=== PATIENT | male | born 1955 | race Caucasian/White ===

== ENCOUNTER 2016-12-19 19:29 | Inpatient (IN) | payer OTHER, BC ==
[2016-12-19] MEDS ORDERED: Aspirin Low Dose CHEW TAB* 81 MG PO ONE (19:44)
[2016-12-19] MEDS ORDERED: Morphine INJ* 4 MG/ML 1 ML CARPUJECT IV ONE (19:47)
[2016-12-19] MEDS ORDERED: NS 0.9% 1000 ML*IV.FLUID IV ONE (19:47)
[2016-12-19] MEDS ORDERED: Morphine INJ* 4 MG/ML 1 ML CARPUJECT ONE (19:53)
[2016-12-19] MEDS ORDERED: Ticagrelor* 90 MG TAB PO ONE (20:00)
[2016-12-19] MEDS ORDERED: Heparin for STEMI(*) 5,000 UNITS/ML 1 ML VIAL IV ONE (20:00)
[2016-12-19 20:01] LABS: Hematocrit 54 % (42-52); Hemoglobin 18.5 g/dl (14.0-18.0); Mean Corpuscular HGB Conc 35 g/dl (31-36); Mean Corpuscular Hemoglobin 32 pg (27-31); Mean Corpuscular Volume 91 fL (80-94); Mean Platelet Volume 7 um3 (7.4-10.4); Red Blood Count 5.88 10^6/ul (4.0-5.4); Red Cell Distribution Width 14 % (10.5-15); White Blood Count 13.9 10^3/ul (3.5-10.8)
[2016-12-19 20:09] LABS: Comments Flag Yes
[2016-12-19 20:18] LABS: Albumin 4.6 g/dL (3.2-5.2); Calcium 10.5 mg/dL (8.6-10.3); EGFR African American 82.9 (>60); EGFR Non-African American 64.4 (>60); Potassium 3.9 mmol/L (3.5-5.0); Total Bilirubin 0.7 mg/dL (0.2-1.0); Total Protein 7.6 g/dL (6.4-8.9)
[2016-12-19 20:28] LABS: Troponin I 0.04 ng/mL (<0.04)
--- NOTE | 2016-12-19 20:32 | RAD ---
Indication: Chest pain; STEMI. Comparison: January 15, 2016 CT. Technique: Upright AP chest radiographs 1950 and 2005 hours. Second image taken due to incomplete inclusion of the lung bases on the initial view. Report: Elevated lung volumes. Clear lungs and pleural spaces. Negative for pneumothorax. The heart, pulmonary vasculature, and mediastinal contours are unremarkable. No thoracic fractures evident. Bilateral AC joint osteoarthritis. IMPRESSION: 1. Elevated lung volumes suggest potential obstructive lung disease. 2. No evidence for acute intrathoracic disease.
[2016-12-19] MEDS ORDERED: Iohexol 350 (CONTRAST) 200 ML MDV IV ONE (20:55)
[2016-12-19] MEDS ORDERED: oxyCODONE/Acetamin 5/325 MG* TAB PO PRN (21:32)
[2016-12-19] MEDS ORDERED: Nitroglycerin TAB 0.4 MG* 0.4 MG TAB SL PRN (21:32)
[2016-12-19] MEDS ORDERED: Acetaminophen TAB* 325 MG PO PRN (21:32)
[2016-12-19] MEDS ORDERED: Ondansetron INJ* 2 MG/ML VIAL IV PRN (21:32)
[2016-12-19] MEDS ORDERED: Docusate CAP* 100 MG PO PRN (21:32)
[2016-12-19] MEDS ORDERED: fentaNYL* 50 MCG/ML 2 ML VIAL (100 MCG VIAL) IV PRN (21:32)
[2016-12-19] MEDS ORDERED: Zolpidem TAB* 5 MG PO PRN (21:32)
[2016-12-19] MEDS ORDERED: NITROGLYCERIN DRIP ONE (21:41)
[2016-12-19] MEDS ORDERED: Midazolam* 1 MG/ML 5 ML VIAL (5 MG) ONE (21:41)
[2016-12-19] MEDS ORDERED: Heparin 2 UNITS/ML IVPREMIX* 1,000 ML BAG IV ONE (21:41)
[2016-12-19] MEDS ORDERED: Lidocaine 1% INJ* 10 MG/ML 30 ML SDV ONE (21:41)
[2016-12-19] MEDS ORDERED: NS 0.9% 1000 ML* 1,000 ML IV SCH (21:45)
[2016-12-19] MEDS ORDERED: Atorvastatin* 80 MG TAB PO ONE (21:47)
[2016-12-19] MEDS ORDERED: Metoprolol Tartrate TAB* 25 MG PO SCH ×2 (22:00→22:10)
[2016-12-20 02:10] LABS: Troponin I 46.2 ng/mL (<0.04)
[2016-12-20] MEDS: Ticagrelor* 90 MG TAB PO SCH ×2 (05:56→19:24)
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
[2016-12-20 06:14] LABS: Hematocrit 44 % (42-52); Hemoglobin 15.3 g/dl (14.0-18.0); Mean Corpuscular HGB Conc 35 g/dl (31-36); Mean Corpuscular Hemoglobin 32 pg (27-31); Mean Corpuscular Volume 90 fL (80-94); Mean Platelet Volume 7 um3 (7.4-10.4); Red Blood Count 4.86 10^6/ul (4.0-5.4); Red Cell Distribution Width 13 % (10.5-15); White Blood Count 11.3 10^3/ul (3.5-10.8)
[2016-12-20 06:33] LABS: Albumin 3.5 g/dL (3.2-5.2); BUN/Creatinine Ratio 16.7 (8-20); EGFR African American 129.7 (>60); EGFR Non-African American 100.9 (>60); HDL Cholesterol 33.8 mg/dL; Potassium 3.5 mmol/L (3.5-5.0); Total Bilirubin 0.5 mg/dL (0.2-1.0); Total Protein 5.5 g/dL (6.4-8.9)
[2016-12-20 07:42] LABS: Troponin I 52.68 ng/mL (<0.04)
[2016-12-20] MEDS ORDERED: Perflutren Lipid Microsphere* 3 ML VIAL ONE (07:59)
[2016-12-20] MEDS: Metoprolol Succinate XL TAB* 50 MG PO SCH ×2 (08:31→20:54)
[2016-12-20] MEDS: Tamsulosin CAP* 0.4 MG PO SCH (08:32)
[2016-12-20] MEDS: Lisinopril TAB* 5 MG PO SCH ×2 (08:32→19:21)
[2016-12-20] MEDS: Gabapentin CAP(*) 300 MG PO SCH ×3 (08:32→20:28)
[2016-12-20] MEDS: Aspirin Low Dose CHEW TAB* 81 MG PO SCH (08:32)
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
[2016-12-20] MEDS: Nicotine PATCH 14 MG/24 HR* PATCH TRANSDERM SCH (11:13)
[2016-12-20 12:25] LABS: Troponin I 40.83 ng/mL (<0.04)
[2016-12-20] MEDS: Atorvastatin* 80 MG TAB PO SCH (20:54)
--- NOTE | 2016-12-20 21:44 | CATH ---
CC: Wilber Mathias MD CARDIAC CATHETERIZATION AND INTERVENTIONAL REPORT: DATE OF PROCEDURE: 12/19/16 INDICATION FOR THE PROCEDURE: The patient presents with chest and left arm discomfort with a syncopal episode and ongoing symptoms and ST segment depression in the early precordial leads with minimal elevation in lead 3. Assess for acute posterior inferior wall myocardial infarction. PROCEDURE: Coronary arteriography, primary stenting of the proximal right coronary artery utilizing a 3.0 x 24 mm long Synergy drug-eluting stent postdilated to 3.3 to 3.4 mm, left heart catheterization, left ventriculography. PROCEDURE IN DETAIL: The patient was interviewed and examined in the emergency room where the risks and benefits were explained. He understood them and wished to proceed. He was brought emergently to the cardiovascular laboratory with ongoing symptoms and ST segment changes. He was prepped and draped in the sterile fashion. The right groin area was anesthetized with 1% lidocaine and right femoral artery was cannulated and a 6-Djiboutian introducer was placed. Coronary arteriography was performed utilizing a 5-Djiboutian 4 Fredi right coronary catheter and a 5-Djiboutian 4 Fredi left coronary catheter. Following this, a decision was made to intervene into the proximal right coronary artery total occlusion. ACT was checked and found to be subtherapeutic and as such, an Angiomax bolus was given and Angiomax drip was started. Guiding views were obtained using a 6-Djiboutian ART4 curve guide catheter. A 0.014 All Star wire was advanced down the right coronary artery and primary stenting was performed utilizing a 3.0 x 24-mm long Synergy drug-eluting stent postdilated with both a 3.0 and 3.25 x 12-mm long NC Emerge balloon at high pressures. Following this, further injections were made into the left coronary artery. Following this, a 5 -Djiboutian Pigtail catheter was advanced to the ascending aorta where central aortic pressure was recorded. Catheter was then passed across the aortic valve into the left ventricle where left ventricular pressure was recorded. Left ventriculography was performed utilizing a total of 26 cc of Omnipaque dye at a rate of 13 cc per second. The catheter was then pulled back across the aortic valve to recheck gradient. At the end of the case, an injection was made into the right femoral sheath to assess the eligibility to utilize a closure device. It was found to be acceptable for this and as such, a 6/7-Djiboutian Mynx closure device was utilized with good hemostasis. The total contrast used was 175 cc of Omnipaque dye. The radiation exposure included 10 minutes of fluoro time. The air kerma radiation was 709 milligray. The DAP radiation was 5039 microgray per meter square. RESULTS: HEMODYNAMIC DATA: Left heart catheterization revealed central aortic pressure of 114/53 with a mean of 83. Left ventricular pressure 115 over left ventricular end- diastolic pressure of 16. LEFT VENTRICULOGRAPHY: Performed in the FELIZ projection revealed moderate to severe focal proximal inferior wall hypokinesis with preservation of the apex and distal inferior wall and anterior wall. Overall ejection fraction assessed at 45%. CORONARY ARTERIOGRAPHY: A. Left coronary artery. 1. Left main widely patent. 2. Left anterior descending artery: The left anterior descending artery had a mild to moderate 35% to 40% mid lesion noted. There were mild luminal irregularities in the distal portion of the vessel but no significant obstruction were seen. The LAD supplied a mid diagonal branch with no significant disease followed by small caliber distal diagonal branches. 3. Circumflex artery - a nondominant vessel supplying a high trifurcation marginal branch, which had very mild ostial narrowing of 20% to 25% . The continuation of the circumflex supplied a moderate size mid obtuse marginal branch, which had a 55% to 60% mid lesion. Just prior to that was a subtotally occluded continuation of the circumflex (90% +), thin in nature, supplying thin low lying posterior left ventricular branches. These vessels appeared to be diffusely diseased and small in caliber. B. Right coronary artery - a dominant vessel (once opened and able to identify the distal vessel) with 100% total occlusion proximally. INTERVENTION INTO PROXIMAL RIGHT CORONARY ARTERY: Successful reconstitution of totally occluded proximal right coronary artery with primary stenting utilizing a 3.0 x 24 mm long Synergy drug-eluting stent postdilated to 3.3 mm. On reopening of the vessel, there appeared to be moderate disease as the artery turned on to the inferior surface of the heart with the area of narrowing approximately 45% to 50%. Of note, a mid acute marginal branch appeared to have a possible thrombus within its proximal area, but with a very small caliber vessel, barely 1.2 to 1.5 mm. OVERALL ASSESSMENT: Significant coronary artery disease involving totally occluded proximal right coronary artery and diffusely diseased distal circumflex small in caliber supplying several thin posterior left ventricular branches. There was moderate disease within the mid obtuse marginal branch as described above. At this point in time, dual antiplatelet therapy will be pursued for a minimum of 1 year. Re-evaluation of the distal circumflex will be carried out most likely as an outpatient unless ischemia develops during the hospitalization. Aspirin therapy, high-dose statin therapy, beta-mari therapy and most likely JUDITH inhibitor therapy will all be instituted. [id number]/[facility] #: [id number] [facility]
[2016-12-20] MEDS ORDERED: Atorvastatin* 80 MG TAB PO ONE (21:45)
[2016-12-20] MEDS: Nicotine Patch Removal NOTE PATCH OFF SCH (22:57)
[2016-12-21] MEDS: Ticagrelor* 90 MG TAB PO SCH ×2 (05:51→17:39)
[2016-12-21 05:52] LABS: Hematocrit 42 % (42-52); Hemoglobin 14.8 g/dl (14.0-18.0); Mean Corpuscular HGB Conc 35 g/dl (31-36); Mean Corpuscular Hemoglobin 32 pg (27-31); Mean Corpuscular Volume 91 fL (80-94); Mean Platelet Volume 8 um3 (7.4-10.4); Red Blood Count 4.67 10^6/ul (4.0-5.4); Red Cell Distribution Width 13 % (10.5-15); White Blood Count 10.2 10^3/ul (3.5-10.8)
[2016-12-21 06:05] LABS: BUN/Creatinine Ratio 14.9 (8-20); Calcium 8.9 mg/dL (8.6-10.3); EGFR African American 154.6 (>60); EGFR Non-African American 120.2 (>60); Potassium 3.7 mmol/L (3.5-5.0)
[2016-12-21] MEDS: Tamsulosin CAP* 0.4 MG PO SCH (08:33)
[2016-12-21] MEDS: Lisinopril TAB* 5 MG PO SCH (08:33)
[2016-12-21] MEDS: Gabapentin CAP(*) 300 MG PO SCH ×3 (08:34→20:19)
[2016-12-21] MEDS: Metoprolol Succinate XL TAB* 50 MG PO SCH ×2 (08:34→20:19)
[2016-12-21] MEDS: Aspirin Low Dose CHEW TAB* 81 MG PO SCH (08:34)
[2016-12-21] MEDS: Nicotine PATCH 14 MG/24 HR* PATCH TRANSDERM SCH ×2 (08:35→08:39)
[2016-12-21] MEDS: amLODIPine TAB* 5 MG PO SCH (09:45)
[2016-12-21] MEDS: Nicotine Patch Removal NOTE PATCH OFF SCH (20:20)
[2016-12-21] MEDS: Atorvastatin* 80 MG TAB PO SCH (20:20)
[2016-12-21] MEDS ORDERED: Magnesium Sulfate 1 GM IV* 1 GM/100 ML BAG IV PRN (21:38)
[2016-12-21] MEDS ORDERED: Potassium Chlor TAB* 20 MEQ TAB.ER PO ONE (22:00)
[2016-12-22] MEDS: Ticagrelor* 90 MG TAB PO SCH (06:01)
[2016-12-22 06:15] LABS: Hematocrit 46 % (42-52); Hemoglobin 15.8 g/dl (14.0-18.0); Mean Corpuscular HGB Conc 35 g/dl (31-36); Mean Corpuscular Hemoglobin 31 pg (27-31); Mean Corpuscular Volume 91 fL (80-94); Mean Platelet Volume 8 um3 (7.4-10.4); Red Blood Count 5.05 10^6/ul (4.0-5.4); Red Cell Distribution Width 13 % (10.5-15)
[2016-12-22 06:23] LABS: Calcium 9.2 mg/dL (8.6-10.3); EGFR African American 127.8 (>60); EGFR Non-African American 99.4 (>60); Potassium 4.1 mmol/L (3.5-5.0)
[2016-12-22] MEDS: Aspirin Low Dose CHEW TAB* 81 MG PO SCH (09:26)
[2016-12-22] MEDS: Lisinopril TAB* 5 MG PO SCH (09:26)
[2016-12-22] MEDS: Gabapentin CAP(*) 300 MG PO SCH ×2 (09:28→14:36)
[2016-12-22] MEDS: amLODIPine TAB* 5 MG PO SCH (09:29)
[2016-12-22] MEDS: Tamsulosin CAP* 0.4 MG PO SCH (09:31)
[2016-12-22] MEDS: Metoprolol Succinate XL TAB* 50 MG PO SCH (09:41)
[2016-12-22] MEDS: Nicotine PATCH 14 MG/24 HR* PATCH TRANSDERM SCH (10:55)
[2016-12-22 14:37] VITALS: BP 134/61
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
== END 2016-12-22 14:55 | disposition home or self-care (01) | DRG 174 ==
LOC: ED 19:29 → CHICATH 20:10 → ICU 21:41 → MEDTELE 12-21 11:22
PROVIDERS: ADMIT Internal Medicine Cardiovascular Disease; ATTEND Internal Medicine Cardiovascular Disease
PROC: 027044Z Dilation of Coronary Artery, One Artery with Drug-eluting Intraluminal Device, Percutaneous Endoscopic Approach (ICD-10-PCS; principal; 2016-12-19)
PROC: 4A023N7 Measurement of Cardiac Sampling and Pressure, Left Heart, Percutaneous Approach (ICD-10-PCS; 2016-12-19)
PROC: B211YZZ Fluoroscopy of Multiple Coronary Arteries using Other Contrast (ICD-10-PCS; 2016-12-19)
PROC: B215YZZ Fluoroscopy of Left Heart using Other Contrast (ICD-10-PCS; 2016-12-19)
DX: I21.19 ST elevation (STEMI) myocardial infarction involving other coronary artery of inferior wall (principal); I44.1 Atrioventricular block, second degree; I25.119 Atherosclerotic heart disease of native coronary artery with unspecified angina pectoris; E11.9 Type 2 diabetes mellitus without complications; F17.210 Nicotine dependence, cigarettes, uncomplicated; Z82.49 Family history of ischemic heart disease and other diseases of the circulatory system; Z79.84 Long term (current) use of oral hypoglycemic drugs
CPT/HCPCS: 36415; 71010; 80048; 80053; 80061; 82550; 82553; 83721; 83735; 83874; 83880; 84484; 85025; 85027; 85610; 85730; 86850; 86900; 86901; 87641; 93005; 93306; A9270-GY; C8929; J1644; J2001; J2250; J2270

== ENCOUNTER 2017-12-30 12:11 | Inpatient (IN) | payer BC ==
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
[2017-12-30 13:13] LABS: Hematocrit 22 % (42-52); Hemoglobin 6.6 g/dl (14.0-18.0); Mean Corpuscular HGB Conc 30 g/dl (31-36); Mean Corpuscular Hemoglobin 21 pg (27-31); Mean Corpuscular Volume 72 fL (80-94); Platelet Count 354 10^3/ul (150-450); Red Blood Count 3.09 10^6/ul (4.00-5.40); Red Cell Distribution Width 17 % (10.5-15); White Blood Count 5.5 10^3/ul (3.5-10.8)
[2017-12-30 13:22] LABS: INR 1.19 (0.77-1.02)
--- OUTSIDE RECORDS SUMMARY | 2017-12-30 13:23 | XMS REPORT ---
:1955 External Reference #:[id number] Author Organization [employer] Address [address] [place] [address] Phone [phone] Care Team Providers Name Role Phone Wilber Mathias MD Primary Care Physician Unavailable Payers Type Date Identification Numbers Payment Provider Subscriber Commercial Effective: Policy Number: [id number] BS Joshua Haney 2016 PayID: [id number] [address] [address] [place] [phone] Medigap Part B Expires: 2010 Policy Number: BS Kandy HAN Martin Castroley [id number] Group Name: [place] [id number] PayID: [id number] [place] [phone] Problems Date Description Provider Status Onset: 07/30/2017 Preoperative cardiovascular Simon Gould M.D., JASMIN, Active examination [facility] Onset: 02/05/2017 Oth symptoms and signs involving iSmon Gould M.D., JASMIN, Active the circ and resp systems [facility] Onset: 01/01/2017 Tobacco use Simon Gould M.D., JASMIN, Active [facility] Onset: 01/01/2017 Essential hypertension Simon Gould M.D., JASMIN, Active [facility] Onset: 01/01/2017 Athscl heart disease of grayling Simon Gould M.D., JASMIN, Active coronary artery w/o ang pctrs [facility] Onset: 01/01/2017 Stemi involving right coronary Simon Gould M.D., JASMIN, Active artery [facility] Onset: 01/01/2017 Hyperlipidemia Simon Gould M.D., FACC, Active [facility] Family History Date Family Member(s) Problem(s) Comments Father due to NV () - at age of 82 Mother due to NV () - at age 42 Siblings 1 living Social History Type Date Description Comments Marital Status 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 Cigarette Use Light tobacco smoker (10 or fewer cigarettes/day) ETOH Use Denies alcohol use Smoking Light tobacco smoker (10 or fewer cigarettes/day) Recreational Drug Use Denies Drug Use Daily Caffeine Consumes on average 2 cups of regular coffee per day Daily Caffeine Consumes on average 2 sodas per day Exercise Type/Frequency Does not exercise Allergies, Adverse Reactions, Alerts Date Description Reaction Status Severity Comments 01/01/2017 Levaquin hives and profuse sweating active Medications Medication Date Status Form Strength Qnty SIG Indications Ordering Provider Jobst Active Active Misc 2Pair 1 pair I70.213 Brandon 15-20MMHG/Knee 018 daily to Keya Nagy, High/Closed legs. M.D. Toe/Medium please size patient. Brilinta Active Tablets 60mg 180tab 1 by Brandon Garcia s mouth F. Mauser, twice a M.D. day Rosuvastatin Active Tablets 20mg 90tabs 1 by I70.213 Brandon Calcium 018 mouth F. Mauser, every M.D. day Nitrostat Active Tablets Sub 0.4mg one sl Simon Thompson q5min up Stefe[place], to 3 M.D., doses as [facility], needed [facility] [place] Aspirin 81 Low Active Chewtabs 81mg 1 by Unknown Dose 000 mouth every day Metformin HCL Active Tablets 1000mg 1 by Unknown 000 mouth a day Brilinta Hx Tablets 90mg 180tab 1 tab by Brandon Thompson - s mouth F. Mauser, twice a M.D. 018 day Amlodipine Hx Tablets 2.5mg 90tabs 1 by Simon Fajardo 017 - mouth Stefek, every M.D., 017 day FACC, [facility] Aspirin Ec Hx Tablets DR 81mg 90tabs 1 by Simon 017 - mouth Stefek, every M.D., day FAC, [facility] Lisinopril Hx Tablets 2.5mg 90tabs 1 by Simon 017 - mouth Stefek, every M.D., day FAC, [facility] Metoprolol Hx Tablets ER 50mg 90tabs 1 by Simon Succinate ER 017 - 24HR mouth Stefek, every M.D., day [facility], [facility] Amlodipine /0 Hx Tablets 2.5mg 90tabs 1 by Simon Besylate 000 - mouth Stefek, every M.D., day FAC, [facility] Lisinopril 0 Hx Tablets 2.5mg 1 by Unknown 000 - mouth every day Metoprolol 0 Hx Tablets ER 50mg 90tabs 1 by Simon Succinate ER 000 - 24HR mouth Stefek, daily M.D., FAC, [facility] Rosuvastatin 0 Hx Tablets 40mg 90tabs 1 by Simon Calcium 000 - mouth Stefek, every M.D., day [facility], [facility] Tizanidine HCL 0 Hx Tablets 4mg take 1 Unknown 000 - tablet by mouth 017 every 8 hours as needed(n ot taking) Tamsulosin HCL /0 Hx Capsules 0.4mg 1 by Unknown 000 - mouth every day Gabapentin 00/0 Hx Capsules 300mg 1 by Unknown 000 - mouth three 017 times a day( pt takes only once daily) Gabapentin 00/0 Hx Capsules 300mg 1 by Unknown 000 - mouth three 018 times a day Vital Signs Date Vital Result Comment 12/11/2017 Height 71 inches 5'11" Weight 161.00 lb Heart Rate 92 /min BP Systolic 132 mmHg right arm BP Diastolic 60 mmHg right arm BMI (Body Mass Index) 22.5 kg/m2 Ejection Fraction 50-55% Echocardiogram 02/03/2017 07/30/2017 Height 71 inches 5'11" Weight 163.00 lb w/ shoes Heart Rate 70 /min reg BP Systolic Sitting 104 mmHg Lue BP Diastolic Sitting 60 mmHg Lue BP Systolic Standing 90 mmHg Lue BP Diastolic Standing 60 mmHg Lue Respiratory Rate 16 /min BMI (Body Mass Index) 22.7 kg/m2 Ejection Fraction 50-55% as of 01/201702/05/2017 Height 71 inches 5'11" Weight 163.00 lb w/ shoes BP Systolic Sitting 132 mmHg rue reg cuff BP Diastolic Sitting 66 mmHg rue reg cuff BP Systolic Standing 120 mmHg rue reg cuff BP Diastolic Standing 72 mmHg rue reg cuff Respiratory Rate 18 /min BMI (Body Mass Index) 22.7 kg/m2 Ejection Fraction 50-55% echo 02/03/17 01/01/2017 Height 71 inches 5'11" Weight 159.00 lb w/shoes Heart Rate 70 /min BP Systolic Sitting 122 mmHg rue reg cuff BP Diastolic Sitting 72 mmHg rue reg cuff BP Systolic Standing 122 mmHg rue reg cuff BP Diastolic Standing 80 mmHg rue reg cuff Respiratory Rate 18 /min BMI (Body Mass Index) 22.2 kg/m2 Ejection Fraction 45% echo 12/20/16 Results Test Date Test Result H/L Range Note Laboratory test finding 02/03/2017 Alt (SGPT) 13 U/L 7-52 1 Ast (Sgot) 11 U/L Low 13-39 2 Lipid Profile (Trig/Chol/HDL) 02/03/2017 Triglycerides 111 mg/dL 3 Cholesterol 94 mg/dL 4 HDL Cholesterol 41.2 mg/dL 5 LDL Cholesterol 31 mg/dL 6 1 FASTING to be done in mid February 2017, Copy to Dr. Mathias 2 FASTING to be done in mid February 2017, Copy to Dr. Mathias 3 Desirable: <150 Borderline High: 150-199 High: 200-499 Very High: >500 4 Desirable: <200 Borderline High: 200-239 High: >239 5 Low: <40 Desirable: 40-60 High: >60 6 Desirable: <100 Near Optimal: 100-129 Borderline High: 130-159 High: 160-189 Very High: >189 Procedures Date CPT Code Description Status 12/11/2017 88449 EKG Tracing & Interpretation Completed 07/30/2017 22648 EKG Tracing & Interpretation Completed 02/03/2017 58504 ECHO Transthorasic Realtime 2D W Doppler & Color Flow Completed Hosp 01/01/2017 86409 EKG Tracing & Interpretation Completed 12/22/2016 17663 EKG, Interpretation Only Completed 12/21/2016 88214 EKG, Interpretation Only Completed 12/20/2016 62031 ECHO Transthorasic Realtime 2D W Doppler & Color Flow Completed Hosp 12/20/2016 04127 EKG, Interpretation Only Completed 12/19/2016 07838 Left Heart Cath. Incl S/I Coronaries, Angio S/I V Gram Completed If Done 12/19/2016 38645 Revascularization Acute Total/Subtotal Occlusion Completed Encounters Type Date Location Provider CPT E/M Dx Office Visit 12/11/2017 3:00p [facility] Brandon Nagy, 01184 I25.10 Martha E78.5 I10 I70.213 R60.9 Office Visit 07/30/2017 3:20p [facility] Alfonso Gould M.D., 54554 I25.10 [employer] Record L[employer] Teacher AT [facility], FSCAI E78.5 I10 Z01.810 Z72.0 I65.21 Office Visit 02/05/2017 8:20a [facility] Alfonso Gould M.D., 31990 I25.10 [facility] AT [facility], FSCAI E78.5 I10 Z72.0 R09.89 Office Visit 01/01/2017 3:00p [facility] Alfonso Gould M.D., 48223 I21.11 [facility] AT [facility], FSCAI I25.10 E78.5 I10 Z72.0 Office Visit 12/22/2016 4:11p [facility] Alfonso Gould M.D., 18168 I21.11 [facility] AT [facility], FSCAI I25.10 Office Visit 12/21/2016 4:10p [facility] Alfonso Gould M.D., 57044 I21.11 [facility] AT [facility], FSCAI I25.10 Office Visit 12/20/2016 3:56p [facility] Alfonso Gould M.D., 32337 I21.11 Medical Record [employer] Teacher AT [facility], FSCAI I25.10 Office Visit 12/19/2016 4:00p [facility] Alfonso Gould M.D., 31492 I21.11 Medical Record Libr[employer] Teacher AT [facility], [facility] Plan of Care Future Appointment(s):01/14/2018 11:00 am - Opal Ashley N.P. at [facility]01/09/2018 10:00 am - [place] [facility] Schedule at [facility]2017 - Brandon Nagy M.D.I25.10 Athscl heart disease of grayling coronary artery w/o ang pctrsNew Orders:NqvhubratoemjmJ82.5 Hyperlipidemia, [id number] Essential (primary) hcvfsdtvajssM12.213 Athscl grayling arteries of extrm w intrmt taco, bi legsNew Medication:Jobst Active 15-20MMHG/Knee High/ Closed Toe/MediumRosuvastatin Calcium 20 mgNew Xrays:VL Ank/Brachial IndicesFollow up:ov Opal 1 m ov JFM 6 mR60.9 Edema, unspecifiedNew Xrays:Venous Doppler [place] Ext
--- NOTE | 2017-12-30 13:28 | RAD ---
INDICATION: Shortness of breath. Weakness and dizziness. Coronary artery disease. COMPARISON: December 19, 2016 TECHNIQUE: Dual energy PA and routine lateral views of the chest were obtained. REPORT: Elevated lung volumes and mild prominence of the interstitial markings. No focal pulmonary lesion, compelling alveolar consolidation, pleural effusion, pneumothorax. The heart, pulmonary vasculature, and mediastinal contours are unremarkable. Anterior cervical fusion hardware. Degenerative arthropathy at the RIGHT greater than LEFT acromioclavicular joints. IMPRESSION: #. Stigmata of obstructive lung disease. No acute pulmonary or cardiac process evident.
[2017-12-30 13:29] LABS: EGFR Non-African American 94.9 (>60)
[2017-12-30 13:38] LABS: ABS Basophils 0.1 10^3/ul (0-0.2); ABS Eosinophils 0.1 10^3/ul (0-0.6); ABS Lymphocytes 1.8 10^3/ul (1.0-4.8); ABS Monocytes 0.4 10^3/ul (0-0.8); ABS Neutrophils 3.2 10^3/ul (1.5-7.7); ABS Nucleated RBC 0 10^3/ul; Eosinophil % 2.7 % (0-6); Lymphocyte % 31.8 % (25-47); Nucleated Red Blood Cells % 0.1
[2017-12-30] MEDS ORDERED: Potassium Chlor TAB* 20 MEQ TAB.ER PO ONE (14:39)
[2017-12-30 14:43] LABS: Urine Appearance Clear; Urine Blood Negative (Negative); Urine Color Yellow; Urine Ketones Negative (Negative); Urine Protein Negative (Negative); Urine Specific Gravity 1.005 (1.010-1.030); Urine Urobilinogen Negative (Negative)
[2017-12-30] MEDS ORDERED: Furosemide IV* 10 MG/ML 2 ML VIAL (20 MG) IV SLOW PU ONE (15:27)
[2017-12-30] MEDS: Pantoprazole IV* 40 MG IV SCH (17:18)
[2017-12-30] MEDS: KCL 10 MEQ/50 ML IVPREMIX* 10 MEQ/50 ML BAG IV SCH ×3 (17:19→23:05)
[2017-12-30] MEDS ORDERED: Dextrose 50% Syringe 50 ML* 25 GM/50 ML SYRINGE IV PUSH PRN (17:22)
--- NOTE | 2017-12-30 21:33 | CONS ---
GASTROENTEROLOGY CONSULT: DATE: 12/30/17 CONSULTING PHYSICIANS: Chasidy Chan, Wilber Mathias. REASON FOR CONSULT: Microcytic anemia in a man this month completing 1 year on Brilinta and low-dose aspirin after myocardial infarction with placement of a drug- eluting stent by Dr Gould. 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 Prior to the coronary stent, he had right carotid surgery by Dr. Yeboah at [facility] with stenosis there having been discovered by a neurosurgeon, who had operated on his neck 3 years ago. He has plates in his C-spine. He had noted increasing global weakness over the last couple of months and came in, and his hemoglobin was 6.6, hematocrit 22, BUN 8, creatinine 0.82, BNP 368, and albumin 4.2. He has a good appetite. He does not have any acid indigestion or dyspepsia. He does not take any NSAIDs beyond the low-dose aspirin. He tends to have 1, possibly 2 stools a week, describes them as black even though he does not take any NSAIDs, Pepto-Bismol, or iron. Originally, a few months ago when he started feeling weaker or nonspecifically unwell, he stopped Crestor and metformin and Flomax. Dr. Nagy, his outpatient aircraft instrument engineer, a couple of weeks ago in response to his subjective complaints lowered his Brilinta and had him restart his Crestor. A year ago, he had Cologuard test that was negative. PAST MEDICAL HISTORY: 1. Coronary disease - NE, December 2016. He had cardiac workup in 2010. 2. Tobacco abuse - still smoking. 3. Cerebrovascular disease - status post right carotid endarterectomy. 4. Cervical spine disease - repaired at [facility] and he has a plate. 5. History of right inguinal hernia repair, age 7. 6. Diabetes mellitus - type 2, on metformin. 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 She is in a wheelchair with continuous oxygen. A sister is with them also. His is his proxy and they were discussing his DNR status as the purple bracelet was applied. A previous initial discussion resulted in being made DNR, though his spontaneously voices that this is because her father and possibly other relatives have had poor end-of-life experiences. He then says he would give resusitation 24 hours, but then is not wanting to remove the DNR bracelet as his says it is his decision. REVIEW OF SYSTEMS: No history of CVA, seizures, paralysis, tremor, MS, hepatitis, jaundice, gross hematuria, renal stones, or abdominal surgery. He did have a hip bone donor site for his neck surgery. PHYSICAL EXAM: He is a fit-appearing man, lying in bed, in no distress. He gives very abrupt answers to most questions and spontaneously says "you've got 48 hours." When asked for further explanation, he says he is leaving at that point and going to work and not coming back. HEENT exam is remarkable for a right neck scar consistent with endarterectomy and a midline neck scar. Lungs are clear. Heart sounds are regular. His abdomen is firm without tenderness or scar. Extremities show no edema. Neurologic is nonfocal, though he was not walked independently. LABORATORY DATA: Stool occult blood negative, though the nature of the specimen is not clear. Blood - hemoglobin 6.6, hematocrit 22, MCV 72 (baseline hemoglobin 1 year ago 15.8 and MCV 91). LFTs normal. IMPRESSION: This 62-year-old man, who is an active smoker has had a recent carotid endarterectomy and a coronary stent. He presents now with a very chronic iron- deficiency anemia with no acute or chronic gastrointestinal symptom indicating blood loss site. He does not have any peptic symptoms. He does have significant constipation, but no bleeding has been seen. He had negative Cologuard a year ago. Given the technical challenges and need for motivation for effectively cleaning out someone who has a bowel movement once a week it seems best to start with an upper endoscopy and see what information is obtained to guide subsequent decision making. Clearly, a Cologuard test has the possibility of false negatives and does not detect AVMs or ileitis. Ambivalence about his DNR status would warrant further discussion. [id number]/[facility] #: [id number] BRI
[2017-12-30] MEDS: Nicotine PATCH 21 MG/24 HR* PATCH TRANSDERM SCH (21:58)
[2017-12-30] MEDS ORDERED: KCL 10 MEQ/50 ML IVPREMIX* 10 MEQ/50 ML BAG ONE (23:03)
[2017-12-30] MEDS: Insulin LISPRO* 1 UNITS UNIT SUBCUT SCH (23:09)
[2017-12-31] MEDS ORDERED: NS 0.9% 1000 ML* 1,000 ML IV SCH (00:01)
[2017-12-31 02:01] LABS: Corrected Retic Count 1.2 % (0.5-1.5); Hematocrit 30 % (42-52); Hematocrit for Retic CNT 30 % (42-52); Hemoglobin 9.2 g/dl (14.0-18.0); Immature Retic Fraction 0.39; RBC Retic Count 4.07 10^6/ul (4.6-6.2)
[2017-12-31 02:17] LABS: EGFR Non-African American 80.1 (>60)
[2017-12-31] MEDS ORDERED: Potassium Chlor TAB* 20 MEQ TAB.ER PO ONE ×2 (03:28→06:38)
--- NOTE | 2017-12-31 03:43 | HP ---
CC: Dr. Mathias; Dr. Reid * HISTORY AND PHYSICAL: DATE OF ADMISSION: 12/30/17 TIME OF EVALUATION: 2:55 p.m. PRIMARY CARE PROVIDER: Dr. Mathias. CONSULTING WET SILK HANGER: Dr. Reid. CHIEF COMPLAINT: Weakness and shortness of breath. HISTORY OF PRESENT ILLNESS: Mr. Haney is a 62-year-old male with a past medical history of non-ST elevation TN in December 2016, status post stents; type 2 diabetes; hyperlipidemia; tobacco abuse, who presented to the emergency room with complaints of weakness and progressive shortness of breath. The patient states that he felt very poorly after his TN and he attributed his weakness and fatigue to his medications. He had been discharged on amlodipine, aspirin, lisinopril, metoprolol, nitroglycerin, rosuvastatin, metformin, gabapentin. He states that he stopped all his meds except aspirin and Brilinta and that he felt a little better, but those symptoms returned and continued to progress. 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 He was seen by Dr. Nagy on 12/11/17 and at that point, he was advised to continue his aspirin. His ticagrelor was reduced to 60 b.i.d. Rosuvastatin was reintroduced at a lower dose and he was supposed to have blood test and lower extremity ultrasound tomorrow as outpatient, but as his symptoms got worse , he came to the emergency room today. In the ED, his CBC showed a hemoglobin of 6.6, significant drop from hemoglobin of 15.8 a year ago when he has had his STEMI. The patient denies seeing any bright red blood in the stool or in the urine. He denies any nausea or vomiting. He states that he never had a colonoscopy, but he states that he does have black stool for a year. He states that he had regular bowel movement until he had an accident couple years ago when a machine fell on him and "crushed him." He was transferred to [facility] and needed to have cervical spine fusion. He states that since then, he has some left arm residual weakness and he has 1 bowel movement a week, and the bowel movement has been black since even before he had the STEMI and was started on aspirin and Brilinta. He denies fever, chills, chest pain, palpitations, cough or weight loss. PAST MEDICAL HISTORY: 1. ST elevation TN, status post stent to the RCA in December 2016. 2. Hyperlipidemia. 3. Type 2 diabetes. MEDICATIONS: 1. Aspirin 81 mg p.o. daily. 2. Metformin 1000 mg p.o. daily. 3. Rosuvastatin 20 mg p.o. daily. 4. Tamsulosin 0.4 mg p.o. daily. 5. Ticagrelor 60 mg p.o. b.i.d. ALLERGIES: With LEVOFLOXACIN, the patient had itching. FAMILY HISTORY: Reviewed and noncontributory. SOCIAL HISTORY: The patient smokes half a pack a day for many years. He states that when he used to smoke a lot, was a pack and a half a day. He drinks alcohol sporadically. He denies any drug use. 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 Surrogate decision maker is his , Sandra Haney, phone number is [phone]. REVIEW OF SYSTEMS: A 14-point review of systems was performed and all the pertinent negative and positive findings are in the HPI. PHYSICAL EXAMINATION GENERAL: The patient is an elderly gentleman, lying in the ED stretcher, in no acute distress. VITAL SIGNS: Temperature 98.2, heart rate is 93, respiratory rate is 18, oxygen saturation 100% on room air, blood pressure is 133/59. HEENT: Pupils are equal and reactive to light. Moist mucous membranes. CHEST: Breath sounds present bilaterally with no added sounds. CVS: Normal S1 and S2. Regular rate and rhythm. ABDOMEN: Soft. Bowel sounds are present. EXTREMITIES: There is moderate left lower extremity edema. NEUROLOGIC: He is alert and oriented x3. Able to move all 4 extremities. DIAGNOSTIC STUDIES/LAB DATA: The patient had a CBC that showed a WBC of 5.5, hemoglobin of 6.6, hematocrit of 22, MCV of 72, MCH of 21, platelets of 354 with 67% neutrophils. INR is 1.1. APTT is 31. D-dimer is less than 200. An ABG showed a pH of 7.54 with pCO2 of 33, PaO2 of 76, bicarb of 29, oxygen saturation 98% on room air. Chemistry showed a sodium of 141, potassium of 3.2 , chloride of 105, bicarb of 27, BUN of 8, creatinine of 0.82, glucose of 123, lactic acid of 2.2, calcium of 9.5, magnesium of 2. LFTs are normal. Troponin was 0.06. CRP is less than 1. BNP is 368. Urinalysis was negative. Chest x-ray showed stigmata of obstructive lung disease with no acute pulmonary or cardiac process evident. EKG done at 1227, showed sinus rhythm at 91 beats per minute with PVCs, nonspecific intraventricular conduction delay with negative T waves in II, III, and aVF, and the T waves inversion was more pronounced on his prior EKG when he had his ST elevation TN. ASSESSMENT AND PLAN: Mr. Haney is a 62-year-old male with a past medical history of coronary artery disease, status post ST elevation myocardial infarction in December of 2016 with stent to the right coronary carotid artery, noncompliance hyperlipidemia, diabetes, tobacco abuse, who presents to the emergency room with complaints of months of progressive weakness, fatigue, shortness of breath, lower extremity edema, found to have severe anemia. 1. Severe anemia. I suspect iron deficiency is secondary to GI loss. His hemoglobin has dropped from 15.8 a year ago to 6.6 with a low MCV and MCH and an elevated RDW. Although the patient states that he did not see any gross blood, he states that he has had years of black stool. Stool for occult blood was negative in the emergency room. His BUN is normal, so I suspect he is not bleeding at this time. He will be admitted, transfused 2 PRBCs. I am going to monitor his H and H. Anemia workup was sent and he is going to be started on Protonix IV at this point. A GI consultation was requested with Dr. Reid and the patient will be n.p.o. after midnight for possible upper endoscopy in the morning. I discussed the case with Cardiology (Dr. Looney) and the recommendation is to continue his low dose aspirin and to hold off his Brilinta at this point since it has been more than a year that he got his stent and he does have significant drop on his H and H at this time, although not actively bleeding right now. 2. Congestive heart failure. The patient may have high flow congestive heart failure due to his significant anemia, but he also has a history of coronary artery disease and noncompliance. He was not taking his medications beside aspirin and Brilinta, and he continues to smoke. I am going to check an echocardiogram and the patient will receive furosemide after his PRBCs. 3. Type 2 diabetes. The patient states that he takes metformin only when his glucose is greater than 150 at home. For now, he is going to have lispro sliding scale according to his fingersticks, and I am going to check a hemoglobin A1c. 4. Hyperlipidemia. We are going to continue statin. 5. DVT prophylaxis. The patient has a score of 3 on a DVT Prophylaxis Risk assessment Guide and we are going to avoid pharmacological prophylaxis now due to significant anemia and possible GI bleed and we are going to avoid mechanical prophylaxis due to his extremity edema and congestive heart failure. 6. Code status was discussed with the patient. He wishes to be a do not resuscitate and there is a MOLST form in the system. TIME SPENT: Approximately 60 minutes were spent with the patient and his interview, medical records review, physical examination to complete this admission, more than half of this time was spent [id number] with the patient in coordination of care. [id number]/[facility] #: [id number] BRI
[2017-12-31] MEDS: Pantoprazole IV* 40 MG IV SCH ×2 (03:53→18:03)
[2017-12-31 06:07] LABS: ABS Basophils 0.1 10^3/ul (0-0.2); ABS Eosinophils 0.2 10^3/ul (0-0.6); ABS Lymphocytes 1.9 10^3/ul (1.0-4.8); ABS Monocytes 0.6 10^3/ul (0-0.8); ABS Nucleated RBC 0 10^3/ul; Eosinophil % 3.1 % (0-6); Hematocrit 26 % (42-52); Hemoglobin 8.4 g/dl (14.0-18.0); Lymphocyte % 24.3 % (25-47); Mean Corpuscular HGB Conc 32 g/dl (31-36); Mean Corpuscular Hemoglobin 23 pg (27-31); Mean Corpuscular Volume 73 fL (80-94); Mean Platelet Volume 8.1 um3 (7.4-10.4); Nucleated Red Blood Cells % 0.1; Platelet Count 343 10^3/ul (150-450); Red Blood Count 3.61 10^6/ul (4.00-5.40); Red Cell Distribution Width 18 % (10.5-15); White Blood Count 7.9 10^3/ul (3.5-10.8)
[2017-12-31 06:13] LABS: EGFR Non-African American 96.2 (>60)
[2017-12-31] MEDS: Insulin LISPRO* 1 UNITS UNIT SUBCUT SCH ×4 (08:09→22:58)
[2017-12-31] MEDS ORDERED: Midazolam* 1 MG/ML 10 ML VIAL (10 MG) ONE (08:51)
[2017-12-31] MEDS ORDERED: fentaNYL* 50 MCG/ML 2 ML VIAL (100 MCG VIAL) ONE (08:51)
[2017-12-31] MEDS: Nicotine PATCH 21 MG/24 HR* PATCH TRANSDERM SCH (10:48)
[2017-12-31] MEDS: Aspirin 81 mg CHEW TAB* 81 MG TAB.CHEW PO SCH (10:48)
[2017-12-31] MEDS: Atorvastatin* 40 MG TAB PO SCH (10:49)
[2017-12-31] MEDS: Tamsulosin CAP* 0.4 MG PO SCH (10:49)
--- NOTE | 2017-12-31 11:12 | ECHO ---
Patient: DUONG YOUNG [facility] Rec#: [id number] : 1955 Date: 12/31/2017 Age: 62y Height: 180 cm / 70.9 in Weight: 73 kg / 160.9 lbs Sex: M BSA: 1.92 Room#: 442 Admit Date#: 12/30/2017 Type: Inpatient Referring: Chasidy Roberts MD Reading: Ileana Posey MD Planning And Analysis Manager: Allyn Fermni RDCS,RDMS CC: Brandon Nagy MD Transthoracic Echocardiogram Indication: CHF BP: 122/55 HR: 91 Rhythm: NSR with PVCs Findings History: SOB, EDEMA, [place], PCI, smoker, syncope, DM Technical Comments: The study quality is fair. The study is technically limited due to poor parasternal windows. Left Ventricle: The left ventricular chamber size is normal. There is no left ventricular hypertrophy. There is a focal wall motion abnormality present.The apex of the heart moves well. The basilar 1/3 of the septum and inferior/posterior wall is severely hypo to akinetic. The estimated ejection fraction is 45-50%. Abnormal left ventricular diastolic function is observed. Left Atrium: The left atrial chamber size is normal. Right Ventricle: The right ventricular cavity size is normal. The right ventricular global systolic function is mildly reduced. Right Atrium: The right atrial cavity size is normal. Aortic Valve: The aortic valve leaflets are mildly thickened. Systolic excursion of the aortic valve is normal. There is a trace of aortic regurgitation. There is no evidence of aortic stenosis. Mitral Valve: The mitral valve leaflets are mildly thickened. There is mild mitral regurgitation. The mitral regurgitant jet is posteriorly directed. There is no evidence of mitral stenosis. Tricuspid Valve: The tricuspid valve leaflets are mildly thickened. There is mild tricuspid regurgitation. Unable to estimate the right ventricular systolic pressure. Pulmonic Valve: There is no evidence of pulmonic valve thickening. There is no evidence of pulmonic regurgitation. Pericardium: A trivial pericardial effusion is visualized. Aorta: The ascending aorta is not well visualized. There is no dilatation of the aortic arch. The aortic root is normal in size. Pulmonary Artery: The main pulmonary artery is not well visualized. Venous: The inferior vena cava appears normal in size. Conclusions The study quality is fair. The left ventricular chamber size is normal. The apex of the heart moves well. The basilar 1/3 of the septum and inferior/posterior wall is severely hypo to akinetic. LVEF 45%. The right ventricular global systolic function is mildly reduced. There is aortic valve sclerosis with a trace of aortic regurgitation. There is mild mitral regurgitation. There is mild tricuspid regurgitation. Compared with prior echo of 02/03/17, LVH no longer seen, wall motion abnormality is new, MR has improved from mild/modearate. Measurements Name Value Normal Range RVIDd (AP) 2D 2.9 cm (0.9 - 2.6) RAd ISD 4CH 4.4 cm (3.4 - 4.9) RA (A4C)W 3.4 cm (2.9 - 4.6) IVSd (2D) 1 cm (0.6 - 1) LVPWd (2D) 1 cm (0.6 - 1) LVIDd (2D) 5 cm (3.6 - 5.4) LVIDs (2D) 4.2 cm - LV FS (2D) 16 % (25 - 45) Aortic Annulus 2.1 cm (1.4 - 2.6) Ao root diameter (2D) 3 cm (2.1 - 3.5) Aortic arch 2.9 cm (1.8 - 3.4) LA dimension (AP) 2D 3.4 cm (2.3 - 3.8) LAd ISD 4CH 5.2 cm (2.9 - 5.3) LA ISD 4CH W 4.7 cm (2.5 - 4.5) Name Value Normal Range LA ESV BP (A/L) index 21 ml/m2 - Name Value Normal Range MV E-wave Vmax 0.9 m/sec - MV deceleration time 127 msec - MV A-wave Vmax 1 m/sec - MV E:A ratio 0.9 ratio - LV septal e' Vmax 0.07 m/sec - LV lateral e' Vmax 0.09 m/sec - LV E:e' septal ratio 12.5 ratio - LV E:e' lateral ratio 10 ratio - Name Value Normal Range AV Vmax 1.5 m/sec - AV VTI 26 cm - AV peak gradient 9 mmHg - AV mean gradient 4 mmHg - LVOT diameter 2 cm - LVOT Vmax 1.3 m/sec - LVOT VTI 25 cm - LVOT peak gradient 7 mmHg - LVOT mean gradient 3 mmHg - JAK (continuity Vmax) 2.6 cm2 - JAK (continuity VTI) 3 cm2 - Name Value Normal Range MV Vmax 1.1 m/sec - MV VTI 26 cm - MV peak gradient 5 mmHg - MV mean gradient 3 mmHg - MV PHT 52 msec - MVA (PHT) 4.2 cm2 - MVA (continuity VTI) 2.9 cm2 - Name Value Normal Range RAP 8 mmHg - IVC diameter 1.4 cm - Name Value Normal Range PV Vmax 1 m/sec - PV peak gradient 4 mmHg -
--- NOTE | 2017-12-31 12:09 | PN ---
Subjective Date of Service: 12/31/17 Interval History: patient seen this morning post EGD. reports remain pending. No active bleed. His hct increased from 22 on presentation to 26 post 2 units transfusion. schedule for Hct at noon and 6 pm today. Will try to keep his HCt above 26. no chest pain no acute issue. no active bleed Past Medical History: Unchanged from Admission Objective Active Medications: Aspirin (Aspirin 81 Mg Chew Tab*) 81 mg PO DAILY [facility] Last Admin: 12/31/17 10:48 Dose: 81 mg Atorvastatin Calcium (Lipitor*) 40 mg PO DAILY [facility] Last Admin: 12/31/17 10:49 Dose: 40 mg Dextrose (D50w Syringe 50 Ml*) 12.5 gm IV PUSH .FOR FS < 60 - SS PRN PRN Reason: FS < 60 Insulin Human Lispro (Humalog*) 0 units SUBCUT ACHS [facility]; Protocol Last Admin: 12/31/17 11:54 Dose: Not Given Nicotine (Nicotine Patch 21 Mg/24 Hr*) 1 patch TRANSDERM DAILY [facility] Last Admin: 12/31/17 10:48 Dose: 1 patch Pantoprazole Sodium (Protonix Iv*) 40 mg IV Q12H [facility] Last Admin: 12/31/17 03:53 Dose: 40 mg Pharmacy Profile Note (Nicotine Patch Removal Note*) 1 note PATCH OFF 2100 [facility] Tamsulosin HCl (Flomax Cap*) 0.4 mg PO DAILY [facility] Last Admin: 12/31/17 10:49 Dose: 0.4 mg Vital Signs - 8 hr 12/31/17 12/31/17 08:17 10:42 Temperature 97.7 F 97.3 F Pulse Rate 88 90 Respiratory 16 20 Rate Blood Pressure 132/67 145/70 (mmHg) O2 Sat by Pulse 99 96 Oximetry Oxygen Devices in Use Now: None Appearance: resting comfortably. no distress. eager to know his results Eyes: No Scleral Icterus, PERRLA Ears/Nose/Mouth/Throat: NL Teeth, Lips, Gums, Clear Oropharnyx Neck: NL Appearance and Movements; NL JVP, Trachea Midline Respiratory: Symmetrical Chest Expansion and Respiratory Effort, Clear to Auscultation Cardiovascular: NL Sounds; No Murmurs; No JVD, RRR Abdominal: NL Sounds; No Tenderness; No Distention Extremities: No Edema, No Clubbing, Cyanosis Skin: No Rash or Ulcers Neurological: Alert and Oriented x 3, NL Muscle Strength and Tone Result Diagrams: 12/31/17 05:30 12/31/17 05:30 Microbiology and Other Data: Microbiology 12/30/17 13:35 Stool Occult Blood ([place]) - Final Stool Assess/Plan/Problems-Billing Assessment: 62 year old male presented with shortness of breath and fatigue, found to be profound anemic and Hct of 22 with demand mediated ischemia - Patient Problems (1) Anemia Current Visit: Yes Status: Acute Code(s): D64.9 - ANEMIA, UNSPECIFIED SNOMED Code(s): 385732115 Comment: - suspect secondary to GI bleed and iron loss - s/p EGD awaiting result. possible need for colonoscopy rule out occult bleed, mass, diverticulosis... - continue protonix and will start iron supplement post procedure - s/p 2 units of pRBC will check noon and 6 pm to keep Hct above 26 (2) Elevated troponin level Current Visit: Yes Status: Acute Code(s): R74.8 - ABNORMAL LEVELS OF OTHER SERUM ENZYMES SNOMED Code(s): 336445675 Comment: - given his anemia, I suspect this demand mediated, however EKG shows changes when compared to his EKG from 12/19/16 specifically widened QRS complex and now now EF down to 45 % on recent Echo - Will consult with cardiolgoy for further input and recommendations - Currently on apsirin 81 mg daily will continue with carefull watching of his H /H (3) CHF (congestive heart failure) Current Visit: Yes Status: Acute Code(s): I50.9 - HEART FAILURE, UNSPECIFIED SNOMED Code(s): 68923816 Comment: Echo from this morning 12/31 showes decline in his EF to 45 % makes him consitent with acute systollic not decompensated stable, Will check with cardio for further recommendations (4) Hypokalemia Current Visit: Yes Status: Acute Code(s): E87.6 - HYPOKALEMIA SNOMED Code( s): 72468980 Comment: replaced will check at noon his repeat K+ level (5) Diabetes Current Visit: Yes Status: Acute Code(s): E11.9 - TYPE 2 DIABETES MELLITUS WITHOUT COMPLICATIONS SNOMED Code(s): 96840529 Comment: - currently on Sliding scale. keep metformin on hold till his discharge (6) Hyperlipidemia Current Visit: Yes Status: Acute Code(s): E78.5 - HYPERLIPIDEMIA, UNSPECIFIED SNOMED Code(s): 72106283 Comment: - on lipitor 40 m HS (7) DVT prophylaxis Current Visit: Yes Status: Acute Code(s): TTR2763 - SNOMED Code(s): 774571267 Comment: - not candidate for SQ heparin due to Anemia - Will place SCD for now
[2017-12-31 13:14] LABS: Hematocrit 27 % (42-52); Hemoglobin 8.4 g/dl (14.0-18.0)
[2017-12-31 13:25] LABS: EGFR Non-African American 100.5 (>60)
--- NOTE | 2017-12-31 14:01 | PN ---
Cardiology Progress Note Date of Service: 12/31/17 - CC: fatigue, SOB Pt s/p stent 1 year ago on DAPT ([place]il[place] and ASA). Chronic fatigue, recent progressive SOB, LE edema. Found very anemic, mild elevation of trops. The patient denies any recurrence of the chest discomfort, sweating he presented with last year. Echo: focal area of hypokinesis seen at the base of the heart, note pre stent, resolved post stent, now back EF 45%. Aspirin (Aspirin 81 Mg Chew Tab*) 81 mg PO DAILY COUNT INCLUDES [facility] Last Admin: 12/31/17 10:48 Dose: 81 mg Atorvastatin Calcium (Lipitor*) 40 mg PO DAILY COUNT INCLUDES THE [facility] Last Admin: 12/31/17 10:49 Dose: 40 mg Dextrose (D50w Syringe 50 Ml*) 12.5 gm IV PUSH .FOR FS < 60 - SS PRN PRN Reason: FS < 60 Insulin Human Lispro (Humalog*) 0 units SUBCUT ACHS COUNT INCLUDES THE [facility]; Protocol Last Admin: 12/31/17 11:54 Dose: Not Given Nicotine (Nicotine Patch 21 Mg/24 Hr*) 1 patch TRANSDERM DAILY COUNT INCLUDES THE [facility] Last Admin: 12/31/17 10:48 Dose: 1 patch Pantoprazole Sodium (Protonix Iv*) 40 mg IV Q12H COUNT INCLUDES THE [facility] Last Admin: 12/31/17 03:53 Dose: 40 mg Pharmacy Profile Note (Nicotine Patch Removal Note*) 1 note PATCH OFF 2100 COUNT INCLUDES THE [facility] Tamsulosin HCl (Flomax Cap*) 0.4 mg PO DAILY COUNT INCLUDES THE [facility] Last Admin: 12/31/17 10:49 Dose: 0.4 mg Vital Signs - 12 hr Temp Pulse Resp BP Pulse Ox 12/31/17 10:42 97.3 F 90 20 145/70 96 12/31/17 08:17 97.7 F 88 16 132/67 99 12/31/17 03:29 98.3 F 96 18 122/55 96 Pt smoking, distant BS, no murmurs. Laboratory Results - last 24 hr 12/30/17 12/30/17 12/30/17 12:55 13:05 13:05 WBC RBC RBC (Retic) Hgb Hct HCT (Retic) MCV MCH MCHC RDW Plt Count MPV Neut % (Auto) Lymph % (Auto) Will % (Auto) Eos % (Auto) Baso % (Auto) Absolute Neuts (auto) Absolute Lymphs (auto) Absolute Monos (auto) Absolute Eos (auto) Absolute Basos (auto) Absolute Nucleated RBC Nucleated RBC % Retic Count, Calc Corrected Retic Count Retic Shift Factor Retic Production Index Immature Retic Fraction Mean Retic Volume Sodium Potassium Chloride Carbon Dioxide Anion Gap BUN Creatinine Est GFR ( Amer) Est GFR (Non-Af Amer) BUN/Creatinine Ratio Glucose POC Glucose (mg/dL) Hemoglobin A1c Lactic Acid Calcium Magnesium 2.0 Iron < 15 L TIBC 578 H % Saturation 3 L Unsat Iron Binding [phone] Transferrin 413 H Ferritin 4.7 L Lactate Dehydrogenase 150 Troponin I Vitamin B12 537 Folate 7.34 Urine Color Urine Appearance Urine pH Ur Specific Doucette Urine Protein Urine Ketones Urine Blood Urine Nitrate Urine Bilirubin Urine Urobilinogen Ur Leukocyte Esterase Urine Glucose Blood Type A Positive Antibody Screen Negative Crossmatch See Detail 12/30/17 12/30/17 12/30/17 14:32 20:45 20:45 WBC RBC RBC (Retic) Hgb Hct HCT (Retic) MCV MCH MCHC RDW Plt Count MPV Neut % (Auto) Lymph % (Auto) Will % (Auto) Eos % (Auto) Baso % (Auto) Absolute Neuts (auto) Absolute Lymphs (auto) Absolute Monos (auto) Absolute Eos (auto) Absolute Basos (auto) Absolute Nucleated RBC Nucleated RBC % Retic Count, Calc Corrected Retic Count Retic Shift Factor Retic Production Index Immature Retic Fraction Mean Retic Volume Sodium Potassium Chloride Carbon Dioxide Anion Gap BUN Creatinine Est GFR ( Amer) Est GFR (Non-Af Amer) BUN/Creatinine Ratio Glucose 126 H POC Glucose (mg/dL) Hemoglobin A1c Lactic Acid 1.5 Calcium Magnesium Iron TIBC % Saturation Unsat Iron Binding Transferrin Ferritin Lactate Dehydrogenase Troponin I 0.06 H* Vitamin B12 Folate Urine Color Yellow Urine Appearance Clear Urine pH 7.0 Ur Specific Doucette 1.005 L Urine Protein Negative Urine Ketones Negative Urine Blood Negative Urine Nitrate Negative Urine Bilirubin Negative Urine Urobilinogen Negative Ur Leukocyte Esterase Negative Urine Glucose Negative Blood Type Antibody Screen Crossmatch 12/31/17 12/31/17 12/31/17 01:41 01:41 05:30 WBC 7.9 RBC 3.61 L RBC (Retic) 4.07 L Hgb 9.2 L 8.4 L Hct 30 L 26 L HCT (Retic) 30 L MCV 73 L MCH 23 L MCHC 32 RDW 18 H Plt Count 343 MPV 8.1 Neut % (Auto) 63.4 Lymph % (Auto) 24.3 L Will % (Auto) 8.1 H Eos % (Auto) 3.1 Baso % (Auto) 1.1 Absolute Neuts (auto) 5.0 Absolute Lymphs (auto) 1.9 Absolute Monos (auto) 0.6 Absolute Eos (auto) 0.2 Absolute Basos (auto) 0.1 Absolute Nucleated RBC 0 Nucleated RBC % 0.1 Retic Count, Calc 1.8 H Corrected Retic Count 1.2 Retic Shift Factor 1.5 Retic Production Index 0.80 Immature Retic Fraction 0.39 Mean Retic Volume 97.0 Sodium 142 Potassium 3.3 L Chloride 106 Carbon Dioxide 29 Anion Gap 7 BUN 10 Creatinine 0.95 Est GFR ( Amer) 96.9 Est GFR (Non-Af Amer) 80.1 BUN/Creatinine Ratio 10.5 Glucose 184 H POC Glucose (mg/dL) Hemoglobin A1c Lactic Acid Calcium 9.2 Magnesium Iron TIBC % Saturation Unsat Iron Binding Transferrin Ferritin Lactate Dehydrogenase Troponin I 0.08 H* Vitamin B12 Folate Urine Color Urine Appearance Urine pH Ur Specific Doucette Urine Protein Urine Ketones Urine Blood Urine Nitrate Urine Bilirubin Urine Urobilinogen Ur Leukocyte Esterase Urine Glucose Blood Type Antibody Screen Crossmatch 12/31/17 12/31/17 12/31/17 05:30 05:30 11:42 WBC RBC RBC (Retic) Hgb Hct HCT (Retic) MCV MCH MCHC RDW Plt Count MPV Neut % (Auto) Lymph % (Auto) Will % (Auto) Eos % (Auto) Baso % (Auto) Absolute Neuts (auto) Absolute Lymphs (auto) Absolute Monos (auto) Absolute Eos (auto) Absolute Basos (auto) Absolute Nucleated RBC Nucleated RBC % Retic Count, Calc Corrected Retic Count Retic Shift Factor Retic Production Index Immature Retic Fraction Mean Retic Volume Sodium 143 Potassium 3.2 L Chloride 107 Carbon Dioxide 28 Anion Gap 8 BUN 10 Creatinine 0.81 Est GFR ( Amer) 116.5 Est GFR (Non-Af Amer) 96.2 BUN/Creatinine Ratio 12.3 Glucose 114 H POC Glucose (mg/dL) 114 H Hemoglobin A1c 6.1 H Lactic Acid Calcium 8.8 Magnesium Iron TIBC % Saturation Unsat Iron Binding Transferrin Ferritin Lactate Dehydrogenase Troponin I 0.07 H* Vitamin B12 Folate Urine Color Urine Appearance Urine pH Ur Specific Doucette Urine Protein Urine Ketones Urine Blood Urine Nitrate Urine Bilirubin Urine Urobilinogen Ur Leukocyte Esterase Urine Glucose Blood Type Antibody Screen Crossmatch 12/31/17 12/31/17 12:55 12:55 WBC RBC RBC (Retic) Hgb 8.4 L Hct 27 L HCT (Retic) MCV MCH MCHC RDW Plt Count MPV Neut % (Auto) Lymph % (Auto) Will % (Auto) Eos % (Auto) Baso % (Auto) Absolute Neuts (auto) Absolute Lymphs (auto) Absolute Monos (auto) Absolute Eos (auto) Absolute Basos (auto) Absolute Nucleated RBC Nucleated RBC % Retic Count, Calc Corrected Retic Count Retic Shift Factor Retic Production Index Immature Retic Fraction Mean Retic Volume Sodium 143 Potassium 3.4 L Chloride 109 Carbon Dioxide 29 Anion Gap 5 BUN 9 Creatinine 0.78 Est GFR ( Amer) 121.6 Est GFR (Non-Af Amer) 100.5 BUN/Creatinine Ratio 11.5 Glucose 116 H POC Glucose (mg/dL) Hemoglobin A1c Lactic Acid Calcium 8.9 Magnesium Iron TIBC % Saturation Unsat Iron Binding Transferrin Ferritin Lactate Dehydrogenase Troponin I Vitamin B12 Folate Urine Color Urine Appearance Urine pH Ur Specific Doucette Urine Protein Urine Ketones Urine Blood Urine Nitrate Urine Bilirubin Urine Urobilinogen Ur Leukocyte Esterase Urine Glucose Blood Type Antibody Screen Crossmatch I recommended Leximyoview tomorrow, the patient stated he is not staying in the hospital another day. I recommend leaving off Brilinta. Smoking cessation was recommended to the patient and his . Consider low dose BB, atenalol might be tolerated w/COPD. Consider ACEI. Continue lipator. If he leaves, then outpatient leximyoview and early f/u with Dr Nagy.
[2017-12-31] MEDS ORDERED: Magnesium CITRATE* 300 ML BTL PO ONE (16:37)
[2017-12-31] MEDS ORDERED: PEG 3000 GI LAVAGE* 1 GALLON PO ONE (16:38)
--- NOTE | 2017-12-31 16:49 | CONS ---
CC: Hospitalist Service; Dr. Brandon Nagy; Dr. Wilber Mathias * CARDIOLOGY CONSULTATION: DATE OF CONSULT: 12/31/17 REASON FOR CONSULT: Elevation in troponins and recurrent wall motion abnormality noted on echo. HISTORY OF PRESENT ILLNESS: Mr. Haney is a 62-year-old gentleman with known atherosclerotic heart disease, followed in the past by Dr. Gould and more recently by Dr. Brandon Nagy. He underwent a cardiac catheterization and stenting almost exactly a year ago, 12/19/16. He had an occluded right coronary artery and underwent a drug-eluting stent to this and he has a 90% distal circ lesion. The patient states he has been tired for a year, but over the last several weeks , he has been even more weak and started to get very winded and he states new or worsening lower extremity edema. In the emergency room, he was found to be extremely anemic with a hemoglobin of 6.6 down from 16 a year ago. The patient has continued to smoke and has not always been compliant with his medications, but he does say that he has been compliant with his aspirin and Brilinta. He was just seen by Dr. Nagy 12/11/17 and his Brilinta dose was decreased from 90 twice a day to 60 twice a day. The patient at first denied dark stools or bleeding, but then said his stools are always dark. The patient denies any recurrence of the chest discomfort that he presented with a year ago. He said he fainted and then had substernal chest discomfort, arm discomfort, and nausea. He has had no recurrence of any of these symptoms. The patient says his breathing is improved with his transfusions and as he has been in his bed, his leg swelling has improved as well. PAST MEDICAL HISTORY: The patient has a past medical history of: 1. Coronary artery disease, subtotally occluded right coronary artery to a drug - eluting stent and he has a 90% distal circ lesion on cath 12/19/16. 2. Active smoker. 3. COPD. 4. Diabetes type 2. 5. Dyslipidemia. 6. Peripheral vascular disease (legs and carotids). MEDICATIONS: Outpatient medications included: 1. Brilinta 60 mg b.i.d. 2. Aspirin 81 mg a day. 3. Nitroglycerin p.r.n. 4. Metformin 1000 mg a day. Current inpatient medications include: 1. Aspirin 81 mg a day. 2. Atorvastatin 40 mg a day. 3. Insulin. 4. Nicotine patch. 5. Protonix 40 mg q.12. 6. Tamsulosin 0.4 mg a day. ALLERGIES: LEVAQUIN. FAMILY HISTORY: Significant that his mother had a heart attack at age 42. His father had a heart attack at age 82. SOCIAL HISTORY: The patient is . His was present in a wheelchair. 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 He continues to smoke. He denies any alcohol use. REVIEW OF SYSTEMS: Negative for orthopnea, PND. Again, no recurrent anginal equivalent. No arm or chest discomfort. No dizziness, no fainting, no near fainting. He says he has chronically dark stools and lower extremity edema has been ongoing. This was confirmed by Dr. Nagy's notes and he does have claudication symptoms of achy pain with ambulation. All other 14-point review of systems was unremarkable. PHYSICAL EXAM: The patient is 5 feet 11 inches, weighs 157 pounds with a BMI of 22. Vitals: At the time of my exam showed blood pressure 145/70, pulse was 90 and regular, respiratory rate 20, oxygen saturations on room air 96%, and he was afebrile. General Appearance: A lean gentleman, lying completely flat, in no acute distress. Psychologically, pleasant and cooperative. Neurologically, awake, alert, and oriented to person, place, and time. Grossly normal sensory and motor function in the upper and lower extremities. I did not watch him walk. Skin: Warm, dry, smells of smoke, good color (post transfusion). No cyanosis. HEENT: No thyromegaly or lymphadenopathy. Breath sounds markedly diminished in all lung [place], but no wheezing, rales, or rhonchi. Coronary: Also distant, S1, S2, regular. Trace systolic murmur heard at the apex. Abdomen: Flat. Active bowel sounds. Soft. No hepatomegaly. Lower extremities showed mild edema. DIAGNOSTIC STUDIES/LAB DATA: On arrival, white count 3.09, hemoglobin 6.6, hematocrit 22, mean cell volume 72, platelets 354. This morning, hematocrit was 27. INR 1.19, PTT 31. ABG on arrival; pH 7.54, pCO2 of 33, pO2 of 76, oxygen saturation 98%. Current electrolytes: Sodium 143, potassium 3.4, chloride 109, bicarb 29, BUN 9, creatinine 0.78, glucose 116, magnesium 2.0. ALT 7. Troponin #1, 0.07; #2, 0.08; #3, 0.06; #4, 0.06. BNP 368. C-reactive protein less than 1. Urinalysis unremarkable. Echocardiogram done today and interpreted by myself, showed a focal wall motion abnormality at the basal one-third of the inferoposterior wall with an ejection fraction of 45%. His last echo was 02/03/17 and his wall motion was normal; however, the echo before that in December of 2016 has had the same wall motion abnormality. IMPRESSION AND PLAN: In summary, Martin Haney is a 62-year-old gentleman just a year out from a stent to an occluded right coronary artery lesion, now presenting with exertional dyspnea, lower extremity edema, fatigue, and found to be significantly anemic. This is in the setting of dual antiplatelet treatment where he has just had his Brilinta dose decreased. He is clinically improved post transfusion. I agree with holding of the Brilinta and if able, continue the aspirin and GI workup is in progress. Mild elevation in troponins and new wall motion abnormality are concerning that there could be another occlusion in the right coronary artery either at the left of the stent or elsewhere in the setting of the stress from his anemia. As he is completely free of angina and he is at risk for demand ischemia from his 90% distal circumflex lesion as well, I recommended a Lexiscan Myoview (the patient does not think he can walk). The patient stated he was not staying another day no matter what. I would recommend a Lexiscan Myoview either in the morning at [facility] or as soon as possible as an outpatient. I agree with the resumption of statins. I personally discussed and strongly recommended complete smoking cessation with the patient in the presence of his and supportive care of his underlying anemia should improve his cardiac status. With respect to volume, I am not impressed that congestive heart failure is a big problem with him, but avoiding salts and nonsteroidals will be important. Peripheral vascular disease, which involves the carotids and the lower extremities. It is best treated with smoking cessation and if we can clear him with a stress test, regular walking and atherosclerotic risk factor modification as above. Thank you for allowing me to assist in this nice gentleman's care. [id number]/[facility] #: [id number] BRI
--- NOTE | 2017-12-31 18:36 | PRO ---
PROCEDURE REPORT: DATE PROCEDURE: 12/31/17 PROCEDURE: EGD with biopsy. REASON FOR PROCEDURE: Microcytic anemia in a patient on aspirin and Brilinta. Brilinta has now been held as cardiac stenting was a year ago. MEDICATIONS GIVEN: 1. Midazolam 5 mg IV. 2. Fentanyl 50 mcg IV. DESCRIPTION OF PROCEDURE: Full disclosure of risks were reviewed with the patient as detailed on the consent form. The patient was placed in left lateral decubitus position and monitored with continuous pulse oximetry, interval blood pressure monitoring, and direct observation. A bite-block was placed between the teeth. An Olympus gastroscope was then inserted into the patient's mouth and advanced down the esophagus, into the stomach, and into the distal duodenum. Findings are described below. The esophagus with a normal tubular structure without masses, rings or strictures. There was an approximately 1 cm tongue of salmon-colored mucosa at the GE junction. This area was biopsied. The Z-line measured at around 41 cm. The GE junction occurred at 42 cm. The scope was then advanced into the stomach. There was a hiatal hernia with the top of the gastric folds occurring at 43 cm. The stomach was examined in the forward and retroflexed views. The stomach was noted to contain yellow fluid. There was no old or fresh blood. There were no gastric erosions or ulcers. There was moderate streaky linear erythema in the antrum. There was no oozing from the erythema and it did not appear to be consistent with GAVE. Biopsy obtained from the antrum and sent for CLOtest to rule out H. pylori. Scope was then advanced into the distal duodenum. Duodenal mucosa was normal. There was no erythema, erosions, or ulcers. The scope was then withdrawn from the patient. The patient tolerated the procedure well. IMPRESSION: 1. A 1 cm tongue of salmon-colored mucosa at the GE junction. Biopsy obtained. 2. Moderate linear erythema in the gastric antrum. Biopsy sent to rule out H. pylori. 3. Otherwise, unremarkable exam without explanation for significant microcytic anemia. RECOMMENDATIONS: 1. Recommend PPI daily. 2. Await pathology. 3. Recommend colonoscopy for work-up of iron deficiency anemia if the patient is willing to proceed with this exam. He has a history of significant constipation. I would recommend that he receive magnesium citrate and a 4 L GoLYTELY prep. He can be reassessed tomorrow to determine if he has been able to prep adequately for colonoscopy. If prep is deemed to be adequate, then this exam can likely be performed tomorrow. [id number]/[facility] #: [id number] BRI
[2017-12-31] MEDS: Nicotine Patch Removal NOTE PATCH OFF SCH (22:58)
[2017-12-31 23:34] LABS: Hematocrit 30 % (42-52)
[2018-01-01] MEDS: Pantoprazole IV* 40 MG IV SCH ×2 (04:50→17:39)
[2018-01-01 06:37] LABS: ABS Basophils 0.1 10^3/ul (0-0.2); ABS Eosinophils 0.4 10^3/ul (0-0.6); ABS Lymphocytes 1.4 10^3/ul (1.0-4.8); ABS Monocytes 0.6 10^3/ul (0-0.8); ABS Neutrophils 2.7 10^3/ul (1.5-7.7); ABS Nucleated RBC 0 10^3/ul; Eosinophil % 6.9 % (0-6); Hematocrit 24 % (42-52); Hemoglobin 7.6 g/dl (14.0-18.0); Lymphocyte % 27.5 % (25-47); Mean Corpuscular HGB Conc 31 g/dl (31-36); Mean Corpuscular Hemoglobin 23 pg (27-31); Mean Corpuscular Volume 73 fL (80-94); Mean Platelet Volume 7.8 um3 (7.4-10.4); Nucleated Red Blood Cells % 0; Platelet Count 310 10^3/ul (150-450); Red Blood Count 3.33 10^6/ul (4.00-5.40); Red Cell Distribution Width 18 % (10.5-15); White Blood Count 5.2 10^3/ul (3.5-10.8)
[2018-01-01 06:55] LABS: EGFR Non-African American 119.8 (>60)
[2018-01-01] MEDS: Insulin LISPRO* 1 UNITS UNIT SUBCUT SCH ×4 (08:26→20:30)
[2018-01-01] MEDS: Atorvastatin* 40 MG TAB PO SCH (08:33)
[2018-01-01] MEDS: Tamsulosin CAP* 0.4 MG PO SCH (08:33)
[2018-01-01] MEDS: Nicotine PATCH 21 MG/24 HR* PATCH TRANSDERM SCH (08:34)
[2018-01-01] MEDS: Aspirin 81 mg CHEW TAB* 81 MG TAB.CHEW PO SCH (08:36)
[2018-01-01] MEDS: KCL 10 MEQ/50 ML IVPREMIX* 10 MEQ/50 ML BAG IV SCH ×3 (10:38→19:19)
--- NOTE | 2018-01-01 11:40 | PN ---
Subjective Date of Service: 01/01/18 Interval History: Patient seen today, he did finish his Golytley with good result. He states he was having only water stool by this morning. no bleed in the toilet. no vomiting blood. His Hct is down to 24 this morning from 30 yesterday. Again he denies any bleed. He remains on protonix 40 mg bid IV. Scheduled for Colonoscopy this afternoon around 2 pm. Anxious and inpatient. He was threatening to leave AMA if colonoscopy was not done before noon, I was able to explain to him that the earliest time for colonoscopy we could get him in is around 1p-2p. He calmed down and is willing to stay Past Medical History: Unchanged from Admission Objective Active Medications: Aspirin (Aspirin 81 Mg Chew Tab*) 81 mg PO DAILY [facility] Last Admin: 01/01/18 08:36 Dose: 81 mg Atorvastatin Calcium (Lipitor*) 40 mg PO DAILY [facility] Last Admin: 01/01/18 08:33 Dose: Not Given Dextrose (D50w Syringe 50 Ml*) 12.5 gm IV PUSH .FOR FS < 60 - SS PRN PRN Reason: FS < 60 Potassium Chloride (Potassium Chloride 10 Meq/50 Ml Ivpremix*) 10 meq in 50 mls @ 50 mls/hr IV Q1H [facility] Stop: 01/01/18 13:59 Last Admin: 01/01/18 10:38 Dose: 50 mls/hr Insulin Human Lispro (Humalog*) 0 units SUBCUT ACHS [facility]; Protocol Last Admin: 01/01/18 08:26 Dose: Not Given Nicotine (Nicotine Patch 21 Mg/24 Hr*) 1 patch TRANSDERM DAILY [facility] Last Admin: 01/01/18 08:34 Dose: 1 patch Pantoprazole Sodium (Protonix Iv*) 40 mg IV Q12H [facility] Last Admin: 01/01/18 04:50 Dose: 40 mg Pharmacy Profile Note (Nicotine Patch Removal Note*) 1 note PATCH OFF 2100 [facility] Last Admin: 12/31/17 22:58 Dose: Not Given Tamsulosin HCl (Flomax Cap*) 0.4 mg PO DAILY [facility] Last Admin: 01/01/18 08:33 Dose: 0.4 mg Vital Signs - 8 hr 01/01/18 01/01/18 01/01/18 03:45 07:36 08:00 Temperature 98.5 F 98.2 F Pulse Rate 92 101 Respiratory 20 20 16 Rate Blood Pressure 104/53 131/63 (mmHg) O2 Sat by Pulse 94 95 Oximetry Oxygen Devices in Use Now: None Appearance: awake, alert. no acute distress. Anxious and inpatient. He was threatening to leave AMA if colonoscopy was not done before noon, I was able to explain to him that the earliest time for colonoscopy we could get him in is around 1p-2p. He calmed down and is willing to stay Eyes: No Scleral Icterus Ears/Nose/Mouth/Throat: NL Teeth, Lips, Gums, Clear Oropharnyx Neck: NL Appearance and Movements; NL JVP, Trachea Midline Respiratory: Symmetrical Chest Expansion and Respiratory Effort Cardiovascular: NL Sounds; No Murmurs; No JVD, RRR Abdominal: NL Sounds; No Tenderness; No Distention Skin: No Rash or Ulcers Neurological: Alert and Oriented x 3 - Nutrition: Malnutrition Diagnosis/Plan Malnutrition Assessment by Registered Dietitian: Malnutrition Assessment Clinical Characteristics Chronic,Moderate Malnutrition Assessment: - 23% wt loss x past 6 months Criteria - Mild-moderate temporal muscle wasting Malnutrition Assessment: Per discussion w/ pt, will send Ensure Clear @ B Interventions , L, D (240 kcals, 8 grams protein per serving) Malnutrition Assessment: Goals 1. Ultimately, adequate PO intake to promote wt repletion w/o additional loss of lean body mass. Result Diagrams: 01/01/18 06:14 01/01/18 06:14 Microbiology and Other Data: Microbiology 12/30/17 13:35 Stool Occult Blood ([place]) - Final Stool Assess/Plan/Problems-Billing Assessment: 62 year old male presented with shortness of breath and fatigue, found to be profound anemic and Hct of 22 with demand mediated ischemia - Patient Problems (1) Anemia Current Visit: Yes Status: Acute Code(s): D64.9 - ANEMIA, UNSPECIFIED SNOMED Code(s): 395472276 Comment: - suspect secondary to GI bleed and iron loss - s/p EGD no stigmata of active bleed. - Colonoscopy today around 2 pm - continue protonix 40 mg IV bid. - I will start iron supplement post procedure - s/p 2 units of pRBC His Hct is down to 24 this morning. Recheck around 2 pm and if low will transfuse again (2) Elevated troponin level Current Visit: Yes Status: Acute Code(s): R74.8 - ABNORMAL LEVELS OF OTHER SERUM ENZYMES SNOMED Code(s): 043366227 Comment: - given his anemia, I suspect this demand mediated, however EKG shows changes when compared to his EKG from 12/19/16 specifically widened QRS complex and now now EF down to 45 % on recent Echo - cardiolgoy consult appreciated. Patient declined stress test as he did not want to wait to do it after the colonoscopy. - Currently on apsirin 81 mg daily will continue with carefull watching of his H /H (3) CHF (congestive heart failure) Current Visit: Yes Status: Acute Code(s): I50.9 - HEART FAILURE, UNSPECIFIED SNOMED Code(s): 88372346 Comment: - Echo from this morning 12/31 showes decline in his EF to 45 % makes him consitent with acute systollic not decompensated stable, - Seen by cardiolgy patient did not want to stay and do the stress test after colonoscopy. He is insisting on leaving after the colonoscopy (4) Hypokalemia Current Visit: Yes Status: Acute Code(s): E87.6 - HYPOKALEMIA SNOMED Code( s): 19011590 Comment: replaced IV (5) Diabetes Current Visit: Yes Status: Acute Code(s): E11.9 - TYPE 2 DIABETES MELLITUS WITHOUT COMPLICATIONS SNOMED Code(s): 22653233 Comment: - currently on Sliding scale. keep metformin on hold till his discharge (6) Hyperlipidemia Current Visit: Yes Status: Acute Code(s): E78.5 - HYPERLIPIDEMIA, UNSPECIFIED SNOMED Code(s): 15053360 Comment: - on lipitor 40 m HS (7) DVT prophylaxis Current Visit: Yes Status: Acute Code(s): BCX4774 - SNOMED Code(s): 684128923 Comment: - not candidate for SQ heparin due to Anemia - Will place SCD for now
[2018-01-01 12:07] LABS: Hematocrit 26 % (42-52); Hemoglobin 7.9 g/dl (14.0-18.0)
[2018-01-01] MEDS ORDERED: Ondansetron INJ* 2 MG/ML VIAL ONE (14:56)
[2018-01-01] MEDS ORDERED: Midazolam* 1 MG/ML 10 ML VIAL (10 MG) ONE (15:03)
[2018-01-01] MEDS ORDERED: fentaNYL* 50 MCG/ML 2 ML VIAL (100 MCG VIAL) ONE (15:03)
[2018-01-01] MEDS ORDERED: KCL 10 MEQ/50 ML IVPREMIX* 20 MEQ/100 ML BAG ONE (17:24)
[2018-01-01] MEDS: Nicotine Patch Removal NOTE PATCH OFF SCH (20:23)
[2018-01-02] MEDS: Pantoprazole IV* 40 MG IV SCH (05:08)
[2018-01-02 06:19] LABS: ABS Basophils 0.1 10^3/ul (0-0.2); ABS Eosinophils 0.4 10^3/ul (0-0.6); ABS Lymphocytes 1.8 10^3/ul (1.0-4.8); ABS Monocytes 0.5 10^3/ul (0-0.8); ABS Neutrophils 3.5 10^3/ul (1.5-7.7); ABS Nucleated RBC 0 10^3/ul; Eosinophil % 6.9 % (0-6); Hematocrit 27 % (42-52); Hemoglobin 8.4 g/dl (14.0-18.0); Lymphocyte % 28.7 % (25-47); Mean Corpuscular HGB Conc 32 g/dl (31-36); Mean Corpuscular Hemoglobin 24 pg (27-31); Mean Corpuscular Volume 74 fL (80-94); Mean Platelet Volume 8.2 um3 (7.4-10.4); Nucleated Red Blood Cells % 0; Platelet Count 277 10^3/ul (150-450); Red Blood Count 3.58 10^6/ul (4.00-5.40); Red Cell Distribution Width 19 % (10.5-15); White Blood Count 6.4 10^3/ul (3.5-10.8)
[2018-01-02 07:34] LABS: EGFR Non-African American 108.5 (>60)
[2018-01-02] MEDS: Nicotine PATCH 21 MG/24 HR* PATCH TRANSDERM SCH (07:35)
[2018-01-02] MEDS: Aspirin 81 mg CHEW TAB* 81 MG TAB.CHEW PO SCH (07:35)
[2018-01-02] MEDS: Tamsulosin CAP* 0.4 MG PO SCH (07:35)
[2018-01-02] MEDS: Atorvastatin* 40 MG TAB PO SCH (07:36)
[2018-01-02 07:44] VITALS: BP 124/61
[2018-01-02] MEDS: Insulin LISPRO* 1 UNITS UNIT SUBCUT SCH (08:15)
--- NOTE | 2018-01-02 08:27 | PRO ---
CC: Dr. Wilber Mathias * COLONOSCOPY REPORT: DATE OF PROCEDURE: 01/01/18 - ROOM #442 PRIMARY CARE PHYSICIAN: Dr. Wilber Mathias. ATTENDING PHYSICIAN: Dr. Chasidy Chan. INDICATION FOR PROCEDURE: Acute blood loss anemia. PROCEDURE PERFORMED: Complete colonoscopy with cold snare polypectomy and clip placement. MEDICATIONS GIVEN: Include: 1. 7 mg IV midazolam. 2. 50 mcg IV fentanyl. DESCRIPTION OF PROCEDURE: After the colonoscopy procedure including the risks, benefits, and alternatives with the risks not limited to perforation, surgery, missed lesions and/or were explained to the patient, informed consent was obtained. The patient was given IV sedation medication and a rectal exam was performed. The rectal exam was unremarkable. The adult Olympus colonoscope was then inserted into the patient's rectum and advanced all the way to the cecum. The preparation was quite poor. He had quite a large amount of fibrous material left over. The exam was not sufficient for polyp detection. I was able to exclude any large lesions with position changing and washing, but quite a few adherent fibrous material was still there. The terminal ileum was identified and normal x3 cm. No evidence of fresh or old blood throughout the colon. Over the next 8 minutes, the scope was carefully withdrawn. In the cecum, there was a small 0.4-cm polyp removed with biopsy polypectomy and in the transverse colon, there was a 0.7-cm polyp removed with cold snare polypectomy. Given the prior Brilinta use, an Endo Clip was placed over this polypectomy site with good effect. The scope was withdrawn into the rectum. The direct views were normal. Retroflexion revealed grade one internal hemorrhoids. The scope was then removed from the patient. He tolerated the procedure well. Again, the preparation was poor with extensive fibrous material leftover. He returned to the recovery room in stable condition. IMPRESSION: 1. Complete colonoscopy with cold snare polypectomy and Endo Clip placement. 2. No fresh or old blood seen. 3. No cause of blood loss anemia identified. 4. Cold snare polypectomy of transverse colon polyp and Endo Clip placement over the site. 5. Cecal polyp biopsy polypectomy. 6. Poor prep. RECOMMENDATIONS: No evidence of overt blood loss at this time, even the small bowel was without blood. Recommend monitoring his H and H at this point. He is okay for full liquids today on 01/01/18. On 01/02/18, if his hemoglobin is stable and there are no overt signs of bleeding, he may advance his diet as tolerated. Would have him follow up with Dr. Reid for definitive colonoscopy in the next couple of months as the prep was poor today to exclude polyp detection. In addition, if there is ongoing evidence of blood loss anemia, would consider outpatient capsule endoscopy. [id number]/CPS #: [id number] BRI
[2018-01-02] MEDS ORDERED: Potassium Chlor TAB* 20 MEQ TAB.ER PO ONE (09:00)
--- NOTE | 2018-01-02 09:49 | PN ---
Subjective Date of Service: 01/02/18 Interval History: Patient doing well. no acute events overnight. Hct stable at 27 this morning up fro 26 yesterday. No bleeding. no nausea or vomit Past Medical History: Unchanged from Admission Objective Active Medications: Aspirin (Aspirin 81 Mg Chew Tab*) 81 mg PO DAILY [facility] Last Admin: 01/02/18 07:35 Dose: 81 mg Atorvastatin Calcium (Lipitor*) 40 mg PO DAILY [facility] Last Admin: 01/02/18 07:36 Dose: Not Given Dextrose (D50w Syringe 50 Ml*) 12.5 gm IV PUSH .FOR FS < 60 - SS PRN PRN Reason: FS < 60 Ferrous Sulfate (Ferrous Sulfate Tab*) 325 mg PO TID [facility] Insulin Human Lispro (Humalog*) 0 units SUBCUT ACHS [facility]; Protocol Last Admin: 01/02/18 08:15 Dose: 1 units Nicotine (Nicotine Patch 21 Mg/24 Hr*) 1 patch TRANSDERM DAILY [facility] Last Admin: 01/02/18 07:35 Dose: 1 patch Pantoprazole Sodium (Protonix Iv*) 40 mg IV Q12H [facility] Last Admin: 01/02/18 05:08 Dose: 40 mg Pharmacy Profile Note (Nicotine Patch Removal Note*) 1 note PATCH OFF 2100 [facility] Last Admin: 01/01/18 20:23 Dose: Not Given Tamsulosin HCl (Flomax Cap*) 0.4 mg PO DAILY [facility] Last Admin: 01/02/18 07:35 Dose: 0.4 mg Vital Signs - 8 hr 01/02/18 01/02/18 01/02/18 03:50 07:20 08:00 Temperature 98.6 F 97.7 F Pulse Rate 89 85 Respiratory 20 16 18 Rate Blood Pressure 135/50 124/61 (mmHg) O2 Sat by Pulse 93 96 Oximetry Oxygen Devices in Use Now: None Appearance: awake, alert. no acute distress Eyes: No Scleral Icterus, PERRLA Ears/Nose/Mouth/Throat: NL Teeth, Lips, Gums, Clear Oropharnyx, Mucous Membranes Moist Neck: NL Appearance and Movements; NL JVP, Trachea Midline Respiratory: Symmetrical Chest Expansion and Respiratory Effort, Clear to Auscultation Cardiovascular: NL Sounds; No Murmurs; No JVD, RRR, No Edema Abdominal: NL Sounds; No Tenderness; No Distention Extremities: No Edema Neurological: Alert and Oriented x 3 - Nutrition: Malnutrition Diagnosis/Plan Malnutrition Assessment by Registered Dietitian: Malnutrition Assessment Clinical Characteristics Chronic,Moderate Malnutrition Assessment: - 23% wt loss x past 6 months Criteria - Mild-moderate temporal muscle wasting Malnutrition Assessment: Per discussion w/ pt, will send Ensure Clear @ B Interventions , L, D (240 kcals, 8 grams protein per serving) Malnutrition Assessment: Goals 1. Ultimately, adequate PO intake to promote wt repletion w/o additional loss of lean body mass. Result Diagrams: 01/02/18 05:43 01/02/18 05:43 Microbiology and Other Data: Microbiology 12/30/17 13:35 Stool Occult Blood ([place]) - Final Stool Assess/Plan/Problems-Billing Assessment: 62 year old male presented with shortness of breath and fatigue, found to be profound anemic and Hct of 22 with demand mediated ischemia - Patient Problems (1) Anemia Current Visit: Yes Status: Acute Code(s): D64.9 - ANEMIA, UNSPECIFIED SNOMED Code(s): 654037844 Comment: - suspect secondary to GI bleed and iron loss - s/p EGD 12/31/17 no stigmata of active bleed. - Colonoscopy 01/01/18 no active bleed. polypectomy. poor prep. will require repeat in 3 months and possible capsule endoscopy as outpatient. - continue protonix 40 mg bid. - I will start iron supplement 325 tid for one month, bid for one month, once a day for one month (2) Elevated troponin level Current Visit: Yes Status: Acute Code(s): R74.8 - ABNORMAL LEVELS OF OTHER SERUM ENZYMES SNOMED Code(s): 259074085 Comment: - given his anemia, I suspect this demand mediated, however EKG shows changes when compared to his EKG from 12/19/16 specifically widened QRS complex and now now EF down to 45 % on recent Echo - cardiolgoy consult appreciated. Patient declined stress test as he did not want to wait to do it after the colonoscopy. - Currently on apsirin 81 mg daily will continue with carefull watching of his H /H - follow up with cardiology as oupatient. hold brillinta for now as he has not been on it and in light of the anemia will maintain him only on one antiplatelet unless dicated otherwise by cardiology (3) CHF (congestive heart failure) Current Visit: Yes Status: Acute Code(s): I50.9 - HEART FAILURE, UNSPECIFIED SNOMED Code(s): 92437425 Comment: - Echo from this morning 12/31 showes decline in his EF to 45 % makes him consitent with acute systollic not decompensated stable, - Seen by cardiolgy patient did not want to stay and do the stress test after colonoscopy. He is insisting on leaving after the colonoscopy (4) Hypokalemia Current Visit: Yes Status: Acute Code(s): E87.6 - HYPOKALEMIA SNOMED Code( s): 79218496 Comment: replaced (5) Diabetes Current Visit: Yes Status: Acute Code(s): E11.9 - TYPE 2 DIABETES MELLITUS WITHOUT COMPLICATIONS SNOMED Code(s): 54589529 Comment: - currently on Sliding scale. keep metformin on hold till his discharge (6) Hyperlipidemia Current Visit: Yes Status: Acute Code(s): E78.5 - HYPERLIPIDEMIA, UNSPECIFIED SNOMED Code(s): 94665220 Comment: - on lipitor 40 m HS (7) DVT prophylaxis Current Visit: Yes Status: Acute Code(s): OPR6066 - SNOMED Code(s): 357752434 Comment: - not candidate for SQ heparin due to Anemia - Will place SCD for now
[2018-01-02] MEDS ORDERED: Ferrous Sulfate TAB* 325 MG PO SCH (10:00)
--- NOTE | 2018-01-03 12:57 | DS ---
CC: Dr. Nagy; Dr. Reid; PCP, Dr. Wilber Mathias. DISCHARGE SUMMARY: DATE OF ADMISSION: 12/30/17 DATE OF DISCHARGE: 01/02/18 FINAL DISCHARGE DIAGNOSES: 1. Anemia, iron deficiency, source undetermined, suspect chronic gastrointestinal loss. 2. Elevated troponin. 3. Demand mediated ischemia, most likely. 4. Congestive heart failure, acute, systolic, but not decompensated. 5. Hypokalemia. 6. Diabetes mellitus. 7. Hyperlipidemia. HOSPITAL COURSE: The patient was admitted to [facility] on 12/30/17 after he developed we akness and shortness of breath worsening with ambulation without any chest pain. He was found to be profoundly anemic with hemoglobin of 6.6 on presentation and hematocrit of 22. The patient did not h ave any history of notably blood upper or lower, but he did report some dark black stool. It should be noted that he is on dual-antiplatelet therapy for his heart disease. The patient was admitted, he was started on IV Protonix b.i.d., was transfused and underwent upper endoscopy on 12/31/17 that did not reveal any stigmata for active bleeding. He underwent colonoscopy 01/01/18, was found to have 1 polyp, which was removed. He was cleared for discharge today with outpatient repeat colonoscopy sec ondary to poor prep and possible capsule endoscopy. I placed him on Protonix 40 mg b.i.d. and I will start him on iron supplement 325 t.i.d. for 1 month, b.i.d. for 1 month, and once a day for 1 month. He is status post total 3 units of packed RBC and his discharge hematocrit today revealed 27 up fro m 26 yesterday. The patient was seen and evaluated and deemed stable for discharge today. DISCHARGE ASSESSMENT AND PLAN: For his anemia, he is status post 3 units packed RBC throughout the h ospital course, status post EGD and colonoscopy. Did not reveal any evidence of active GI bleed. He was placed on Protonix 40 b.i.d. and iron supplementation for 1 month t.i.d., b.i.d. for 1 month and once a day for [address] Castro for repeat colonoscopy, possible in 2 to 3 months and capsule endoscopy. For his elevated troponin, it was deemed to be demand mediated, was seen by Cardiology, suggested to have a stress test, the patient declined. He wanted to leave the hospital. They okayed to discontin ue his Brilinta and continue aspirin and followup with Cardiology as an outpatient. For his CHF, was newly diagnosed, that is 45%, that has decreased from 55%. It is non-decompensated and followup as an outpatient. Diabetes, continue his home medication. Hyperlipidemia, continue his Lipitor. DISCHARGE MEDICATIONS: 1. Iron 325 mg 3 times a day. 2. Metoprolol, started him on 12.5 mg daily. 3. Nicotine patch. 4. Pantoprazole 40 mg b.i.d. 5. Aspirin 81 mg daily. 6. Crestor 20 mg daily. 7. Metformin 1000 mg everyday. 8. Flomax 0.4 mg daily. The patient is instructed to stop his Brilinta. DISCHARGE INSTRUCTIONS: Follow up with his primary care provider in 1 to 2 weeks. Follow up with Dr. Brandon Nagy in about 1 to 2 weeks. Follow up with Dr. Camron Reid in 1 to 2 weeks. [id number]/[facility] #: [id number]
== END 2018-01-02 11:10 | disposition home or self-care (01) | DRG 663 ==
LOC: ED 12:11 → MEDTELE 14:56
PROVIDERS: ADMIT Internal Medicine; ATTEND Internal Medicine
PROC: 30233N1 Transfusion of Nonautologous Red Blood Cells into Peripheral Vein, Percutaneous Approach (ICD-10-PCS; principal; 2017-12-30)
PROC: 0DB48ZX Excision of Esophagogastric Junction, Via Natural or Artificial Opening Endoscopic, Diagnostic (ICD-10-PCS; 2017-12-31)
PROC: 0DB78ZX Excision of Stomach, Pylorus, Via Natural or Artificial Opening Endoscopic, Diagnostic (ICD-10-PCS; 2017-12-31)
PROC: 0DBH8ZZ Excision of Cecum, Via Natural or Artificial Opening Endoscopic (ICD-10-PCS; 2018-01-01)
PROC: 0DBL8ZZ Excision of Transverse Colon, Via Natural or Artificial Opening Endoscopic (ICD-10-PCS; 2018-01-01)
DX: D62 Acute posthemorrhagic anemia (principal); I50.21 Acute systolic (congestive) heart failure; I24.8 Other forms of acute ischemic heart disease; F17.210 Nicotine dependence, cigarettes, uncomplicated; E78.5 Hyperlipidemia, unspecified; E87.6 Hypokalemia; I73.00 Raynaud's syndrome without gangrene; I49.3 Ventricular premature depolarization; I25.10 Atherosclerotic heart disease of native coronary artery without angina pectoris; K44.9 Diaphragmatic hernia without obstruction or gangrene; K59.00 Constipation, unspecified; K64.8 Other hemorrhoids; E11.51 Type 2 diabetes mellitus with diabetic peripheral angiopathy without gangrene; K63.5 Polyp of colon; Z72.89 Other problems related to lifestyle; Z95.5 Presence of coronary angioplasty implant and graft; I25.2 Old myocardial infarction; Z88.1 Allergy status to other antibiotic agents; Z83.3 Family history of diabetes mellitus; Z82.49 Family history of ischemic heart disease and other diseases of the circulatory system; Z91.14 Patient's other noncompliance with medication regimen; Z79.82 Long term (current) use of aspirin; Z79.84 Long term (current) use of oral hypoglycemic drugs
CPT/HCPCS: 36415; 71046; 80048; 80053; 81003; 82270; 82550; 82553; 82607; 82728; 82746; 82803; 82947; 83036; 83540; 83550; 83605; 83615; 83735; 83880; 84100; 84484; 85014; 85018; 85025; 85045; 85379; 85610; 85730; 86140; 86850; 86900; 86901; 86922; 87077; 88305; 93005; 93306; 99156; 99157; 99284; A9270-GY; J1940; J2250; J2405; J3010; J3480; P9040

== ENCOUNTER 2018-01-05 11:21 | Emergency (ER) | payer BC ==
[2018-01-05 13:20] LABS: EGFR Non-African American 97.6 (>60)
[2018-01-05 13:21] LABS: ABS Basophils 0.2 10^3/ul (0-0.2); ABS Eosinophils 0.4 10^3/ul (0-0.6); ABS Lymphocytes 1.8 10^3/ul (1.0-4.8); ABS Monocytes 0.4 10^3/ul (0-0.8); ABS Neutrophils 4.6 10^3/ul (1.5-7.7); ABS Nucleated RBC 0 10^3/ul; Eosinophil % 5.1 % (0-6); Hematocrit 34 % (42-52); Lymphocyte % 24.7 % (25-47); Mean Corpuscular HGB Conc 30 g/dl (31-36); Mean Corpuscular Hemoglobin 23 pg (27-31); Mean Corpuscular Volume 78 fL (80-94); Mean Platelet Volume 8.5 um3 (7.4-10.4); Nucleated Red Blood Cells % 0.1; Platelet Count 292 10^3/ul (150-450); Red Blood Count 4.37 10^6/ul (4.00-5.40); Red Cell Distribution Width 19 % (10.5-15); White Blood Count 7.4 10^3/ul (3.5-10.8)
[2018-01-05 13:29] LABS: INR 1.2 (0.77-1.02)
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
--- NOTE | 2018-01-05 14:32 | RAD ---
INDICATION: Weakness and shortness of breath. Anemic per patient history. COMPARISON: December 30, 2017 TECHNIQUE: Dual energy PA and routine lateral views of the chest were obtained. REPORT: Small bilateral dependent pleural effusions with proportional basilar atelectasis. Mild prominence of the interstitial markings including peripheral thickened interlobular septa. Negative for cardiomegaly. Unremarkable central pulmonary vasculature. Anterior cervical fusion hardware. IMPRESSION: #. Mild interstitial pulmonary edema and small dependent pleural effusions new compared with the December 30, 2017 exam.
[2018-01-05] MEDS ORDERED: Furosemide TAB* 40 MG PO ONE (14:36)
[2018-01-05 15:01] VITALS: BP 151/74
== END 2018-01-05 14:58 | disposition home or self-care (01) ==
LOC: ED 11:21
DX: I50.9 Heart failure, unspecified (principal); D64.9 Anemia, unspecified; Z95.5 Presence of coronary angioplasty implant and graft; Z88.1 Allergy status to other antibiotic agents; F17.210 Nicotine dependence, cigarettes, uncomplicated
CPT/HCPCS: 36415; 71046; 80053; 83605; 83880; 84484; 85025; 85610; 85730; 93005; 99282; A9270-GY

== ENCOUNTER 2020-12-15 08:13 | Inpatient (IN) ==
[~2020-12-15 08:13] MED LIST: Buffered Lidocaine 1% SYRIN 1 ml INTRADERM ONE; Lactated Ringers 1000 ml BAG 1,000 ML IV SCH
[2020-12-15] MEDS ORDERED: Midazolam 2 mg/2 ml VIAL 1 mg/ml 2 ml VIAL (2 mg) ONE (08:51)
[2020-12-15] MEDS ORDERED: Rocuronium 50 mg VIAL 10 mg/ml 5 ml VIAL (50 mg) ONE (08:52)
[2020-12-15] MEDS ORDERED: Dexamethasone IV 4 MG/ML VIAL 1 ml VIAL ONE (08:52)
[2020-12-15] MEDS ORDERED: Propofol 10 MG/ML 20 ML BTL ONE (08:52)
[2020-12-15] MEDS ORDERED: Lidocaine 2% PF 5 ML VIAL ONE (08:53)
[2020-12-15] MEDS ORDERED: DiMENhydriNATE IV 50 mg/ml 1 ml VIAL IV PUSH PRN (09:59)
[2020-12-15] MEDS ORDERED: Acetaminophen IV 1 GM/100ML 100 ML IV PRN (09:59)
[2020-12-15] MEDS ORDERED: HYDROmorphone 1 MG/1 ML SYRINGE IV PRN (09:59)
[2020-12-15] MEDS ORDERED: diPHENhydraMINE IV 50 MG/ML 1 ml VIAL (BENADRYL) IV PRN (09:59)
[2020-12-15] MEDS ORDERED: Naloxone 0.4 mg VIAL 0.4 mg/ml 1 ml VIAL IV PRN (09:59)
[2020-12-15] MEDS ORDERED: Prochlorperazine 5 mg/ml 2 ml VIAL (10 mg) IV PRN (09:59)
[2020-12-15] MEDS ORDERED: Ondansetron 4 mg VIAL 2 MG/ML 2 ml VIAL IV PRN ×2 (09:59→15:49)
[2020-12-15] MEDS ORDERED: fentaNYL 100 mcg/2 ml 50 MCG/ML VIAL IV PRN (09:59)
[2020-12-15] MEDS ORDERED: Oxymetazoline 0.05% NASAL SPR 15 ML BTL ONE (10:01)
[2020-12-15] MEDS ORDERED: Phenylephrine 40 mcg/mL 10mL (400mcg) SYRINGE ONE ×2 (10:35→11:23)
[2020-12-15] MEDS ORDERED: Ondansetron 4 mg VIAL 2 MG/ML 2 ml VIAL ONE (11:37)
[2020-12-15] MEDS ORDERED: Prochlorperazine 5 mg/ml 2 ml VIAL (10 mg) ONE (11:37)
[2020-12-15] MEDS ORDERED: Dextrose 50% Syringe 50 ml 25 GM/50 ML SYRINGE IV PUSH PRN (13:24)
[2020-12-15] MEDS ORDERED: Clindamycin 600 MG/D5W BAG IV ONE (14:00)
[2020-12-15] MEDS: NS 0.9% 1000 ml BAG 1,000 ML IV SCH (16:28)
[2020-12-15] MEDS: Pantoprazole VIAL 40 MG VIAL IV SCH (16:28)
[2020-12-15] MEDS: Heparin 5000 UNITS/ML 1 mL VIAL SUBCUT SCH ×2 (16:28→23:36)
[2020-12-15 16:31] LABS: Hematocrit 38 % (42-52); Hemoglobin 12.6 g/dL (14.0-18.0); Mean Corpuscular HGB Conc 33 g/dL (31-36); Mean Corpuscular Hemoglobin 28 pg (27-31); Mean Corpuscular Volume 84 fL (80-94); Mean Platelet Volume 6.9 fL (7.4-10.4); Platelet Count 375 10^3/uL (150-450); Red Blood Count 4.55 10^6 /uL (4.18-5.48); Red Cell Distribution Width 15 % (10-15); White Blood Count 8.6 10^3/uL (3.5-10.8)
[2020-12-15 16:50] LABS: Activated Partial Thrombo Time 34.2 seconds (26.0-38.0); INR 1.33 (0.86-1.15)
[2020-12-15 17:02] LABS: Albumin 3.5 g/dL (3.2-5.2); Albumin/Globulin Ratio 1.3 (1-3); C Reactive Protein 34.28 mg/L (<8.01); Calcium 8.8 mg/dL (8.6-10.3); Globulin 2.6 g/dL (2-4); Potassium 4.2 mmol/L (3.5-5.0); Total Bilirubin 0.4 mg/dL (0.2-1.0); Total Protein 6.1 g/dL (6.4-8.9)
[2020-12-15 19:09] LABS: Erythrocyte Sed Rate 60 mm/Hr (0-19)
[2020-12-15] MEDS: Clindamycin 600 MG/D5W BAG 600 MG/50 ML BAG IV SCH (23:36)
[2020-12-16] MEDS: Clindamycin 600 MG/D5W BAG 600 MG/50 ML BAG IV SCH (06:07)
[2020-12-16 06:12] LABS: Rapid COVID-19 Molecular Undetected (Undetected)
[2020-12-16 06:49] LABS: ABS Lymphocytes 2.2 10^3/ul (1.0-4.8); ABS Monocytes 0.5 10^3/ul (0-0.8); ABS Neutrophils 6.8 10^3/ul (1.5-7.7); Eosinophil % 0.2 %; Hematocrit 37 % (42-52); Lymphocyte % 22.9 %; Mean Corpuscular HGB Conc 33 g/dL (31-36); Mean Corpuscular Hemoglobin 28 pg (27-31); Mean Corpuscular Volume 85 fL (80-94); Mean Platelet Volume 7.4 fL (7.4-10.4); Platelet Count 387 10^3/uL (150-450); Red Blood Count 4.31 10^6 /uL (4.18-5.48); Red Cell Distribution Width 14 % (10-15); White Blood Count 9.6 10^3/uL (3.5-10.8)
[2020-12-16 06:55] LABS: C Reactive Protein 29.04 mg/L (<8.01); Calcium 9.1 mg/dL (8.6-10.3); Magnesium 1.9 mg/dL (1.9-2.7); Phosphorus 3.7 mg/dL (2.5-5.0); Potassium 3.8 mmol/L (3.5-5.0)
[2020-12-16] MEDS: NS 0.9% 1000 ml BAG 1,000 ML IV SCH (07:17)
[2020-12-16] MEDS: Heparin 5000 UNITS/ML 1 mL VIAL SUBCUT SCH (07:48)
[2020-12-16 07:54] VITALS: BP 106/59
[2020-12-16] MEDS ORDERED: Enoxaparin 30 MG/0.3 ML SYR SUBCUT SCH (08:00)
[2020-12-16] MEDS: Pantoprazole VIAL 40 MG VIAL IV SCH (08:48)
[2020-12-16 10:12] LABS: Erythrocyte Sed Rate 47 mm/Hr (0-19)
[2020-12-16] MEDS ORDERED: Clindamycin VIAL 600 MG in NS 0.9% 50 ML 50 ML IVPB SCH (22:30)
== END 2020-12-16 11:25 | disposition left against medical advice (07) | DRG 392 ==
LOC: OR 08:13 → SUATTDRO 14:02 → SSU 14:02
PROVIDERS: ADMIT Internal Medicine; ATTEND Internal Medicine

== ENCOUNTER 2024-04-09 15:04 | Observation (INO) ==
[2024-04-09 15:45] LABS: ABS Basophils 0.1 10^3/uL (0.0-0.1); ABS Eosinophils 0.2 10^3/uL (0.0-0.5); ABS Lymphocytes 2.5 10^3/uL (1.0-4.8); ABS Monocytes 0.7 10^3/uL (0.0-1.1); ABS Neutrophils 14.5 10^3/uL (1.5-7.6); Eosinophil % 1.1 %; Hematocrit 33.6 % (38-53); Hemoglobin 10.1 g/dL (13.2-16.3); Lymphocyte % 13.8 %; Mean Corpuscular Hemoglobin 20.1 pg (27-33); Mean Corpuscular Hgb Conc 29.9 g/dL (31-36); Mean Corpuscular Volume 67.3 fL (80-97); Mean Platelet Volume 7.1 fL (7.5-11.2); Platelet Count 412 10^3/uL (150-450); Red Cell Distribution Width 21.6 % (12-17)
[2024-04-09 15:46] LABS: INR 1.21 (0.85-1.14)
[2024-04-09 16:21] LABS: Albumin 3.9 g/dL (3.5-5.7); Albumin/Globulin Ratio 1.8 (1-3); Calcium 9.1 mg/dL (8.6-10.3); Creatinine, Serum 0.98 mg/dL (0.67-1.17); Globulin 2.2 g/dL (2-4); Potassium 4.1 mmol/L (3.5-5.0); Total Bilirubin 0.5 mg/dL (0.2-1.0); Total Protein 6.1 g/dL (6.4-8.9); eGFR CKD-EPI 83.5 (>60)
[2024-04-09 16:54] LABS: C Reactive Protein 13.15 mg/L (<8.01)
[2024-04-09 17:01] LABS: High Sensitivity Troponin 1 Hr 5 pg/mL (<20)
[2024-04-09] MEDS: Lactated Ringers 1000 ml BAG 1,000 ML IV ONE (18:57)
[2024-04-09 21:45] LABS: ABS Basophils 0.1 10^3/uL (0.0-0.1); ABS Monocytes 0.6 10^3/uL (0.0-1.1); ABS Neutrophils 15.7 10^3/uL (1.5-7.6); Anisocytosis 3+; Eosinophil % 0.3 %; Hematocrit 34.6 % (38-53); Hemoglobin 10.4 g/dL (13.2-16.3); Hypochromasia 2+; Lymphocyte % 10.6 %; Mean Corpuscular Hemoglobin 19.9 pg (27-33); Mean Corpuscular Volume 66.5 fL (80-97); Mean Platelet Volume 7.3 fL (7.5-11.2); Microcytosis 3+; Platelet Count 430 10^3/uL (150-450); Red Blood Count 5.21 10^6/uL (4.06-5.63); Red Cell Distribution Width 21.4 % (12-17); Tear Drop Cells 1+; White Blood Count 18.3 10^3/uL (3.6-10.2)
[2024-04-10] MEDS: Lactated Ringers 1000 ml BAG 1,000 ML IV SCH (01:38)
[2024-04-10] MEDS ORDERED: Zosyn per Pharmacy NOTE FOLLOW UP SCH (02:00)
[2024-04-10] MEDS: Piperacillin/Tazobac 3.375 BAG 3.375 GM/100 ML BAG IV ONE (02:35)
[2024-04-10 03:08] LABS: Urine Appearance Clear; Urine Bilirubin Negative (Negative); Urine Blood Negative (Negative); Urine Color Yellow; Urine Glucose Negative (Negative); Urine Ketones Negative (Negative); Urine Nitrite Negative (Negative); Urine Protein Trace (Negative); Urine Specific Gravity 1.024 (1.002-1.030); Urine Urobilinogen 1+ (Negative)
[2024-04-10] MEDS: ZOSYN 3.375 GM Q8H per EXTENDED INFUSION IV SCH (06:00)
[2024-04-10] MEDS ORDERED: Sulfur Hexaflouride MICROSPHR 25 MG VIAL IV PRN (06:04)
[2024-04-10 06:43] LABS: ABS Basophils 0.1 10^3/uL (0.0-0.1); ABS Eosinophils 0.2 10^3/uL (0.0-0.5); ABS Lymphocytes 2.3 10^3/uL (1.0-4.8); ABS Monocytes 0.7 10^3/uL (0.0-1.1); ABS Neutrophils 8.4 10^3/uL (1.5-7.6); Eosinophil % 1.3 %; Hemoglobin 8.9 g/dL (13.2-16.3); Lymphocyte % 19.9 %; Mean Corpuscular Hemoglobin 20.4 pg (27-33); Mean Corpuscular Hgb Conc 30.8 g/dL (31-36); Platelet Count 337 10^3/uL (150-450); Red Blood Count 4.39 10^6/uL (4.06-5.63); Red Cell Distribution Width 21.5 % (12-17); White Blood Count 11.7 10^3/uL (3.6-10.2)
[2024-04-10 07:03] LABS: Calcium 8.1 mg/dL (8.6-10.3); Creatinine, Serum 0.86 mg/dL (0.67-1.17); Magnesium 1.8 mg/dL (1.9-2.7); Potassium 3.8 mmol/L (3.5-5.0); eGFR CKD-EPI 93.7 (>60)
[2024-04-10] MEDS: Enoxaparin 40 MG/0.4 ML SYR SUBCUT SCH (08:37)
[2024-04-10 10:37] VITALS: BP 106/50
[2024-04-10] MEDS: Ferric Gluconate IV 250 MG in NS 0.9% 250 ml 200 ML IVPB SCH (11:11)
== END 2024-04-10 11:43 | disposition left against medical advice (07) ==
LOC: EDHOLD 15:04 → ED 15:04 → SUATTDRO 21:26 → MEDTELE 23:07
PROVIDERS: ADMIT Student in an Organized Health Care Education/Training Program; ATTEND Internal Medicine